=== PATIENT | male | born 1945 | race Caucasian/White ===

== ENCOUNTER 2017-07-28 15:42 | Inpatient (IN) ==
[2017-07-28 16:35] LABS: Basophils % 0.3 %; Eosinophils # 0.1 K/mcL (0.0-0.6); Eosinophils % 1.4 %; Hematocrit 37.4 % (37.5-50.1); Immature Granulocytes % 0.5 % (0-4); Lymphocytes # 1.3 K/mcL (0.6-4.6); Lymphocytes % 13.8 %; Mean Corpuscular HGB Conc 32.1 g/dL (31.6-35.5); Mean Corpuscular Hemoglobin 27.6 pg (28.0-33.3); Mean Corpuscular Volume 86.2 fL (83.0-100.0); Monocytes # 0.7 K/mcL (0.0-1.3); Monocytes % 7.3 %; Neutrophils # 7.2 K/mcL (1.6-8.9); Platelet Count 177 K/mcL (140-400); Red Blood Count 4.34 M/mcL (4.19-5.50); Red Cell Distribution Width 13.6 % (11.5-14.5); Segmented Neutrophils % 76.7 %
--- NOTE | 2017-07-28 16:38 | Emergency Department Note ---
Disposition Clinical Impression: Elevated troponin Acute exacerbation of CHF (congestive heart failure) Qualifiers: Congestive heart failure type: unspecified congestive heart failure type Qualified Code(s): I50.9 - Heart failure, unspecified Disposition: Admitted As Inpatient Condition: Good Time of Disposition: 19:15 SOB HPI - General Chief Complaint: ED Shortness of Breath/Dyspnea Stated Complaint: SOB/CHF Time Seen by Provider: 07/28/17 15:50 Source: family Limitations: language barrier Nursing Notes Reviewed: Yes Vital Signs Reviewed: Yes - History of Present Illness The patient is a 71 y/o M with a past medical history of congestive heart failure, hypertension, GA, and diabetes who is complaining of shortness of breath. The patient is only Wolof speaking. History is obtained from the patient but translated by his daughter at bedside. Outside Collector services were offered and the patient refused a medical staff physician and agrees to have his daughter translate for him. The patient states that the shortness of breath started last night while sleeping and it woke him up. He admits it improved when he propped himself up last night. The patient states that it feels similar to his past shortness of breath when he has a CHF exacerbation and usually feels better when "they take water off of me." Patient states that he could not use his CPAP last night because of his shortness of breath. Patient admits the SOB is worse with exertion and lying flat and improves at rest and sitting up. Patient recently returned from [place] two weeks ago and admits updated immunizations. Patient admit he had a GA in June 2017 while he was in [place]. Patient denies any fever, cough, nausea, vomiting, pain, abdominal pain, black or bloody stool, changes in his urination, numbness and tingling, or any focal neurological deficits. - Related Data Home Medications Medication Instructions Recorded Confirmed Acarbose [Precose] 50 mg PO TID 08/09/15 07/29/17 Metformin [Glucophage] 850 mg PO DAILY 08/09/15 07/29/17 Pentoxifylline [TRENtal] 400 mg PO BID 08/09/15 07/29/17 Hydralazine HCl 50 mg PO TID 01/18/16 07/29/17 Carvedilol [Coreg] 37.5 mg PO BID 07/29/17 07/29/17 Furosemide [Lasix] 40 mg PO BID 07/29/17 07/29/17 Insulin ASPART [Novolog Flexpen] 15 unit SQ BID 07/29/17 07/29/17 Metoprolol [Lopressor] 100 mg PO BID 07/29/17 07/29/17 Previous Rx's Medication Instructions Recorded Atorvastatin [Lipitor] 40 mg PO HS #30 tablet 08/14/15 Aspirin [Adult Low Dose Aspirin EC] 81 mg PO DAILY #30 tablet. 01/18/16 Allergies Allergy/AdvReac Type Severity Reaction Status Date / Time No Known Allergies Allergy Verified 07/28/17 15:44 All systems ED: reviewed and negative except as stated. Review of Systems: As Per HPI Respiratory: Reports: dyspnea. Denies: wheezes, sputum production Past Medical History - Past Medical History Medical history: Reports: CHF, coronary artery disease, CVA, diabetes, hyperlipidemia, hypertension, myocardial infarction, seizures, other Surgical history: Reports: vasectomy Psychiatric history: Reports: no psych history - Social History Smoking Status: Never smoker Smokeless Tobacco Status: No Alcohol use: Reports: none Drug use: Reports: none Physical Exam CONSTITUTIONAL: Alert and oriented X3, well-nourished, well appearing, in no apparent distress HEAD: Normocephalic; atraumatic. EYES: PERRL, no scleral icterus. NOSE: The nose is normal in appearance without rhinorrhea RESP: Inspiratory and expiratory wheezes heard anteriorly and posteriorly in the upper lobes bilaterally. No rhonchi or rales. Symmetrical chest rise. CARD: Regular rhythm, without murmurs, rub or gallop ABD: Non-distended; non-tender, soft,without rigidity, rebound or guarding SKIN: Normal for age and race; warm and dry; no apparent lesions EXTREMITIES: Pulses are 2 plus and equal times 4 extremities. Trace pitting edema in bilateral lower extremities. No calf muscle pain. - General Limitations: language barrier General appearance: alert Course Vital Signs Temperature 98.9 F 07/28/17 15:44 Pulse Rate 87 07/28/17 15:44 Respiratory Rate 20 07/28/17 15:44 Blood Pressure 134/79 07/28/17 15:44 O2 Sat by Pulse Oximetry 92 07/28/17 15:44 Temperature 97.5 F L 07/30/17 11:00 Pulse Rate 73 07/30/17 11:00 Respiratory Rate 16 07/30/17 11:05 Blood Pressure 123/76 07/30/17 11:00 O2 Sat by Pulse Oximetry 93 07/30/17 11:05 Oxygen Delivery Oxygen Delivery Room Air Shortness of Breath/Dyspnea - [facility] Narrative Medical decision making narrative: Patient is afebrile and appears in no acute distress. EKG shows no STEMI or acute ischemic changes. O2 sat was 93-94% on room air. Placed patient on 2L of oxygen and O2 sat increased to 98%. Shortness of breath workup is pending to further evaluate for possible CHF exacerbation, pneumonia, and pulmonary embolism. 16:52- CXR shows findings consistent with pulmonary edema. Reassessed the patient and admits SOB is improved on 3L of oxygen. 18:00- Elevated BNP and Troponin. Will give patient Lasix for CHF exacerbation and 324 mg Aspirin. Plan to admit patient. Waiting on admitting hospitalist to call. 18:28 - Dr. Felix discussed with Sha Washington about the patient. He agrees to accept the patient. Patient and his family agrees with the plan. - Lab Data Lab results reviewed: Yes I reviewed the patient's lab results. Result diagrams: 07/30/17 04:53 07/30/17 04:53 Lab Results 07/28/17 07/28/17 07/28/17 Range/Units 16:19 16:19 16:19 WBC 9.4 (4.3-11.1) K/mcL RBC 4.34 (4.19-5.50) M/mcL Hgb 12.0 L (12.9-16.9) g/dL Hct 37.4 L (37.5-50.1) % MCV 86.2 (83.0-100.0) fL MCH 27.6 L (28.0-33.3) pg MCHC 32.1 (31.6-35.5) g/dL RDW 13.6 (11.5-14.5) % Plt Count 177 (140-400) K/mcL MPV 11.0 (9.4-12.4) fL Immature Gran % 0.5 (0-4) % Seg Neutrophils % 76.7 % Lymphocytes % 13.8 % Monocytes % 7.3 % Eosinophils % 1.4 % Basophils % 0.3 % Neutrophils # 7.2 (1.6-8.9) K/mcL Lymphocytes # 1.3 (0.6-4.6) K/mcL Monocytes # 0.7 (0.0-1.3) K/mcL Eosinophils # 0.1 (0.0-0.6) K/mcL Basophils # 0.0 (0.0-0.2) K/mcL D-Dimer (0-500) ng/mLFEU Sodium 135 L (136-145) mEq/L Potassium 4.9 H (3.5-4.5) mEq/L Chloride 105 (98-109) mEq/L Carbon Dioxide 21 (19-29) mEq/L BUN 29 H (8-26) mg/dL Creatinine 1.55 H (0.72-1.25) mg/dL Est GFR ( Amer) 54 L (> 60) Est GFR (Non-Af Amer) 45 L (> 60) BUN/Creatinine Ratio 19 (6-26) Glucose 280 H (70-99) mg/dL POC Glucose (58-89) Calculated Osmolality 296 (280-300) Lactic Acid (0.5-2.2) mmol/L Calcium 9.1 (8.6-10.8) mg/dL Troponin I 0.08 H* (0-0.03) ng/mL B-Natriuretic Peptide (0-100) pg/mL 07/28/17 07/28/17 07/28/17 Range/Units 16:19 16:19 17:24 WBC (4.3-11.1) K/mcL RBC (4.19-5.50) M/mcL Hgb (12.9-16.9) g/dL Hct (37.5-50.1) % MCV (83.0-100.0) fL MCH (28.0-33.3) pg MCHC (31.6-35.5) g/dL RDW (11.5-14.5) % Plt Count (140-400) K/mcL MPV (9.4-12.4) fL Immature Gran % (0-4) % Seg Neutrophils % % Lymphocytes % % Monocytes % % Eosinophils % % Basophils % % Neutrophils # (1.6-8.9) K/mcL Lymphocytes # (0.6-4.6) K/mcL Monocytes # (0.0-1.3) K/mcL Eosinophils # (0.0-0.6) K/mcL Basophils # (0.0-0.2) K/mcL D-Dimer 465 (0-500) ng/mLFEU Sodium (136-145) mEq/L Potassium (3.5-4.5) mEq/L Chloride (98-109) mEq/L Carbon Dioxide (19-29) mEq/L BUN (8-26) mg/dL Creatinine (0.72-1.25) mg/dL Est GFR ( Amer) (> 60) Est GFR (Non-Af Amer) (> 60) BUN/Creatinine Ratio (6-26) Glucose (70-99) mg/dL POC Glucose (58-89) Calculated Osmolality (280-300) Lactic Acid 0.9 (0.5-2.2) mmol/L Calcium (8.6-10.8) mg/dL Troponin I (0-0.03) ng/mL B-Natriuretic Peptide 1506 H (0-100) pg/mL 07/28/17 Range/Units 21:47 WBC (4.3-11.1) K/mcL RBC (4.19-5.50) M/mcL Hgb (12.9-16.9) g/dL Hct (37.5-50.1) % MCV (83.0-100.0) fL MCH (28.0-33.3) pg MCHC (31.6-35.5) g/dL RDW (11.5-14.5) % Plt Count (140-400) K/mcL MPV (9.4-12.4) fL Immature Gran % (0-4) % Seg Neutrophils % % Lymphocytes % % Monocytes % % Eosinophils % % Basophils % % Neutrophils # (1.6-8.9) K/mcL Lymphocytes # (0.6-4.6) K/mcL Monocytes # (0.0-1.3) K/mcL Eosinophils # (0.0-0.6) K/mcL Basophils # (0.0-0.2) K/mcL D-Dimer (0-500) ng/mLFEU Sodium (136-145) mEq/L Potassium (3.5-4.5) mEq/L Chloride (98-109) mEq/L Carbon Dioxide (19-29) mEq/L BUN (8-26) mg/dL Creatinine (0.72-1.25) mg/dL Est GFR ( Amer) (> 60) Est GFR (Non-Af Amer) (> 60) BUN/Creatinine Ratio (6-26) Glucose (70-99) mg/dL POC Glucose 164 H (58-89) Calculated Osmolality (280-300) Lactic Acid (0.5-2.2) mmol/L Calcium (8.6-10.8) mg/dL Troponin I (0-0.03) ng/mL B-Natriuretic Peptide (0-100) pg/mL - Radiology Data Radiology results reviewed: Yes I reviewed the patient's radiology results. Chest X-Ray 07/28/17 16:18 IMPRESSION: Cardiopericardial enlargement and perihilar opacities compatible with pulmonary edema. Apparent inferior positioning of the AICD lead compared to previous exam, possibly related to cardiopericardial enlargement. D/ / Iraj Christianson MD / Iraj Christianson MD Interpreting Provider: Iraj Christianson MD - EKG Data EKG attestation: Yes I reviewed and interpreted this EKG. EKG results narrative: EKG Shows sinus rhythm with a ventricular rate of , [place] interval at 174, QRS duration at 104, QT at 383, QTC at 424. No Acute ischemic changes noted on the EKG. No old EKG to compare it to. Attestation Statement - Attestation Attestation: I examined this patient and my medical decision-making was reviewed with the Resident Physician. I agree with the documented findings, disposition and treatment plan as described except to the extent set forth below. 71 yo male presents with increasing SOB. Pt states he is unable to lay flat secondary to SOB. +hx of CHF and possible GA within the past few months while in [place]. troponin is elevated however it is likely at his baseline. D-dimer negative. +elevated BNP and CXR consistent with CHF. Pt given aspirin and lasix and admitted for further care and evaluation.
[2017-07-28 16:52] LABS: Calcium 9.1 mg/dL (8.6-10.8)
[2017-07-28 16:54] LABS: Potassium 4.9 mEq/L (3.5-4.5)
[2017-07-28] MEDS ORDERED: Furosemide 40 MG/4 ML VIAL IVP ONE (17:41)
[2017-07-28] MEDS ORDERED: Aspirin 81 MG TAB.CHEW PO STA (18:04)
--- NOTE | 2017-07-28 19:33 | Internal Med History&Physical ---
<Angelo Gonzalez - Last Filed: 07/28/17 21:13> Date of Encounter: 07/28/17 Time of Encounter: 20:45 Assessment and Plan (1) CHF exacerbation Current visit: No Status: Acute Patient presents with shortness of breath likely due to CHF exacerbation. -Patient has an elevated BNP of 1506. -Chest x-ray demonstrates evidence of pulmonary edema. -Aggressive diuresis: 80 mg Lasix BID. -Metolazone 10 mg 1 dose one hour before the administration of Lasix. -Strict intake and output. -Low-sodium diet. -Closely monitor potassium and magnesium. Qualifiers: Qualified Code(s): I50.9 - Heart failure, unspecified (2) Dyspnea Current visit: No Status: Acute Palpitations shortness of breath likely due to CHF exacerbation. -Patient is currently on 2 L oxygen. -Aggressive diuresis. -Continue to monitor patient's creatinine and electrolytes closely. Qualifiers: Qualified Code(s): R06.02 - Shortness of breath; R06.00 - Dyspnea, unspecified; R06.01 - Orthopnea (3) Diabetes mellitus Current visit: No Status: Acute Patient has a known history of diabetes mellitus. -Insulin and Accu-Cheks. Qualifiers: Diabetes mellitus type: type 2 Diabetes mellitus complication status: with unspecified complications Diabetes mellitus roasterman insulin use: unspecified senior living insulin use status Qualified Code(s): E11.8 - Type 2 diabetes mellitus with unspecified complications (4) Elevated troponin I level Current visit: No Status: Acute Patient presented with a troponin level of 0.08. -Elevated troponin level is possibly secondary to demand ischemia. -EKG demonstrated no acute changes suggestive of myocardial infarction. -Aspirin 324 mg. -Repeat troponin levels. Internal Medicine - H&P: HPI Chief complaint: Shortness of breath Admitted From: Home History of present illness: Mr. Dela Cruz is a 71 year old male with a past medical history of CHF, hypertension, ID, diabetes who presented to the emergency department with a chief complaint of shortness of breath. Patient does not speak fluent Bulgarian; only speaks Marshallese. Patient is accompanied by his daughter, who provides most of the patient's history. He states that his shortness of breath started last night while he was sleeping and woke him up. He states that his shortness of breath improved when he props himself up. He notes that this episode is similar to several CHF exacerbations he has had the past. He has had approximately 10 such exacerbations since the year 2012. He notes that his condition normally improves when he "they take water off me." Patient's shortness of breath is worse with exertion and lying flat, and it improves with rest and sitting up. Patient states that he had recently returned from a trip to [place] 2 weeks ago. During this trip, he had a ID. When he went to the hospital, he was told that he had evidence of ischemia on EKG. No treatment was given during that time. Patient's chest pain improved shortly after. Past Med Surg Social Fam HX - Past Medical History Medical history: CHF, coronary artery disease, CVA, diabetes, hyperlipidemia, hypertension, myocardial infarction, seizures, other Psychiatric history: no psych history - Past Surgical History Surgical History: vasectomy - Social History Smoking Status: Never smoker Smokeless Tobacco Status: No Alcohol use: none Drug use: none - Family History Father Living Status: Hx Family Cardiac Disorders: Yes Hx Family Respiratory Disorders: No Hx Family Cancer: No Hx Family GI Disorders: No Hx Family Endocrine Disorder: No Hx Family Neuromuscular Disorders: No Hx Family Neurologic Disorders: No Hx Family HEENT Disorders: No Hx Family Autoimmune Disorders: No Daughter Adopted: No Family Member Ethnicity: Living Status: Still Living Hx Family Cardiac Disorders: Yes (brother) Hx Family Respiratory Disorders: No Hx Family Cancer: Yes (grandmother) Hx Family GI Disorders: No Hx Family Endocrine Disorder: Yes Hx Family Neuromuscular Disorders: No Hx Family Neurologic Disorders: No Hx Family HEENT Disorders: No Mother Family Member Ethnicity: Living Status: Hx Family Cardiac Disorders: No Hx Family Respiratory Disorders: No Hx Family Cancer: Yes (bone) Hx Family GI Disorders: No Hx Family Endocrine Disorder: Yes (DM) Hx Family Neuromuscular Disorders: No Hx Family Neurologic Disorders: No Hx Family HEENT Disorders: No Hx Family Autoimmune Disorders: No Internal Medicine - H&P: Meds Acarbose [Precose] 50 mg PO TID 08/09/15 [History] Metformin [Glucophage] 850 mg PO TID 08/09/15 [History] Pentoxifylline [TRENtal] 400 mg PO DAILY 08/09/15 [History] Atorvastatin [Lipitor] 40 mg PO HS #30 tablet 08/14/15 [Rx] Furosemide [Lasix] 40 mg PO BIDDIURETIC #30 tablet 08/14/15 [Rx] Aspirin [Adult Low Dose Aspirin EC] 81 mg PO DAILY #30 tablet. 01/18/16 [Rx] Hydralazine HCl 50 mg PO TID 01/18/16 [History] Enalapril Maleate [Vasotec] 10 mg PO BID 06/20/16 [History] Novolin N 15 unit SQ BID 06/20/16 [History] 3 Allergy/AdvReac Type Severity Reaction Status Date / Time No Known Allergies Allergy Verified 07/28/17 15:44 All Systems PM: A 10-system review of systems was performed and is negative for pertinent findings except as documented above in the HPI. - Constitutional Constitutional: no chills, no fever(s), no night sweats - EENT Nose, mouth and throat: no nasal discharge, no neck pain - Cardiovascular Cardiovascular ROS IM: dyspnea, no chest pain, no diaphoresis, no lightheadedness, no palpitations, no syncope - Respiratory Respiratory: no cough, no dyspnea, no wheezing, no excessive phlegm production - Gastrointestinal Gastrointestinal: no abdominal pain, no diarrhea, no hematemesis, no hematochezia, no melena, no nausea, no vomiting - Musculoskeletal Musculoskeletal ROS IM: no numbness, no tingling - Integumentary Integumentary IM: no rash, no unusual bruising - Neurological Neurological ROS: no confusion, no convulsions - Hematologic/Lymphatic Hematologic/Lymphatic: no easy bruising - Constitutional Vitals: Temp Pulse Resp BP Pulse Ox 98.9 F 85 18 155/107 96 07/28/17 15:44 07/28/17 18:06 07/28/17 18:53 07/28/17 18:53 07/28/17 18:06 General appearance: Present: A&O X 3, no acute distress, answers questions appropriately - Head Head exam: Present: atraumatic, normocephalic - Neck Neck exam general surgery: Present: supple, trachea midline. Absent: lymphadenopathy - Respiratory Respiratory exam: Present: CTAB. Absent: accessory muscle use, rales, rhonchi, wheezes - Cardiovascular Cardiovascular exam: Present: RRR, +S1, +S2. Absent: diastolic murmur, gallop, rubs, systolic murmur - GI/Abdominal GI/Abdominal exam: Present: normal bowel sounds, soft, no peritoneal signs. Absent: distended, tenderness - Extremities Exam Extremities exam: Present: pedal edema, warm, radial pulses palpable and symmetrical. Absent: calf tenderness, cyanotic - Skin Skin exam: Present: dry, intact Internal Med - H&P Results - Labs CBC & Chem 7: 07/28/17 16:19 07/28/17 16:19 <Alley Fajardo - Last Filed: 07/29/17 05:35> Date of Encounter: 07/28/17 Internal Medicine - H&P: HPI History of present illness: Mr. Dela Cruz is a 71 year old male All Systems PM: A 10-system review of systems was performed and is negative for pertinent findings except as documented above in the HPI. - Constitutional Vitals: Temp Pulse Resp BP Pulse Ox 99.4 F 95 16 169/67 96 07/29/17 04:11 07/29/17 04:11 07/29/17 04:11 07/29/17 04:11 07/29/17 04:11 Internal Med - H&P Results - Labs CBC & Chem 7: 07/28/17 16:19 07/28/17 16:19 - Attending Attestation I have independently and personally seen the patient and examined the patient and discuss care plan with the resident and I gave her the findings. Patient came in with shortness of breath. His BNP is elevated in the range of 1506. He has mild renal insufficiency with creatinine of 1.5. On examination his JVD is noted to be elevated and his is still dyspneic. Normally he uses 3 L of oxygen at home but now he is on 6 L of oxygen. We plan to diurese him aggressively with Lasix 80 mg IV twice a day with Zaroxolyn. Zaroxolyn need to be stopped until 3 days once he is diuresed enough. Patient known EF is 30-35% and he has an AICD. I will also add nebulizer treatment. He has underlying COPD exacerbation.
[2017-07-28] MEDS: metOLazone 5 MG TABLET PO SCH (21:12)
[2017-07-28] MEDS: Furosemide 40 MG/4 ML VIAL IVP SCH (22:56)
[2017-07-29] MEDS ORDERED: Dextrose Gel 15 GM PO PRN ×2 (05:26)
[2017-07-29] MEDS ORDERED: *HR* Dextrose 50 % in Water (Syg) 50 ML SYRINGE IVP PRN (05:26)
[2017-07-29] MEDS ORDERED: D5% in Water 1,000 ML IVC PRN (05:26)
[2017-07-29] MEDS ORDERED: Ondansetron 4 MG/2 ML VIAL IVP PRN (05:27)
[2017-07-29] MEDS ORDERED: Naloxone 0.4 MG/ML INJ IVP PRN (05:27)
[2017-07-29] MEDS ORDERED: Acetaminophen 325 MG TABLET PO PRN (05:27)
[2017-07-29] MEDS ORDERED: Albuterol 2.5 MG/3 ML NEBULIZER IH PRN (05:35)
[2017-07-29] MEDS: *HR* Heparin 5,000 UNIT/ML VIAL SQ SCH ×2 (06:22→17:49)
[2017-07-29 06:39] LABS: Albumin 3.6 g/dL (3.5-5.0); Bilirubin,Total 1.2 mg/dL (0.2-1.2); Calcium 9.2 mg/dL (8.6-10.8); Globulin 3.5 g/dL (2.4-3.5); Magnesium 1.7 mg/dL (1.6-2.6); Potassium 3.4 mEq/L (3.5-4.5); Total Protein 7.1 g/dL (6.0-8.3)
[2017-07-29] MEDS: Ipratropium/Albuterol Neb 3 ML IH SCH ×4 (07:49→22:01)
[2017-07-29] MEDS: hydrALAZINE 25 MG TABLET PO SCH ×3 (08:53→22:11)
[2017-07-29] MEDS: Aspirin Enteric Coated 81 MG Tablet PO SCH (08:53)
[2017-07-29] MEDS: Insulin LISPRO 300 UNITS/3 ML VIAL SQ SCH ×4 (08:53→22:12)
[2017-07-29] MEDS: metOLazone 5 MG TABLET PO SCH (08:53)
[2017-07-29] MEDS: Furosemide 40 MG/4 ML VIAL IVP SCH ×2 (08:54→22:11)
[2017-07-29] MEDS ORDERED: INSULIN ISOPHANE SQ SCH (09:00)
--- NOTE | 2017-07-29 12:24 | Electrocardiograph Report ---
[place] [id number] Test Date: 2017-07-28 Pat Name: Antonio Dela Cruz Department: 103 Room: 2A Gender: M Division Field Inspector: : [id number] Requested By: Guillermo Timmons Order Number: [id number] Reading MD: Ac Mckeon MD Measurements Intervals [place] Rate: 84 P: 51 AL: 174 QRS: -22 QRSD: 104 T: 140 QT: 383 QTc: 424 Interpretive Statements SINUS RHYTHM WITH OCCASIONAL SUPRAVENTRICULAR PREMATURE COMPLEXES BORDERLINE LEFT AXIS DEVIATION LEFT VENTRICULAR HYPERTROPHY AND ST-T CHANGE Electronically Signed On 07-29-2017 12:22:38 EDT by Ac Mckeon MD
--- NOTE | 2017-07-29 22:12 | Internal Med Progress Note ---
Date of Encounter: 07/29/17 Time of Encounter: 12:30 - Assessment and plan (1) Heart failure, systolic, with acute decompensation Current Visit: Yes Status: Acute Assessment and plan: Due to non-compliance. His daughter states that this is mainly due to a [place] diet that he enjoys where most foods are high in sodium. Does not seem to be retaining much water at this point. Continue Lasix 80 mg IV BID with metolazone. Strict I/Os and daily weights. Anticipate to lower Lasix dose tomorrow if he does well overnight. An echocardiogram one year ago 06/2016 showed EF 30-35% with some diastolic dysfunction of LV. Repeat echocardiogram today. If worsens we may need to consult Cardiology. (2) EDGAR (acute kidney injury) Current Visit: No Status: Acute Assessment and plan: Probably hepatorenal syndrome as his function has slightly improved with treatment. (3) CAD (coronary artery disease) Current Visit: No Status: Chronic Qualifiers: Coronary Disease-Associated Artery/Lesion type: [place] artery [place] vs. transplanted heart: [place] heart Associated angina: angina presence unspecified Qualified Code(s): I25.10 - Atherosclerotic heart disease of [place] coronary artery without angina pectoris (4) Cardiac enzymes elevated Current Visit: No Status: Acute (5) DM (diabetes mellitus), type 2 Current Visit: No Status: Chronic Qualifiers: Diabetes mellitus complication status: with hyperglycemia Diabetes mellitus retirement insulin use: with retirement use Qualified Code(s): E11.65 - Type 2 diabetes mellitus with hyperglycemia; Z79.4 - intermediate card tender (current) use of insulin (6) ICD (implantable cardioverter-defibrillator) in place Current Visit: Yes Status: Acute - Subjective Interval history: Leather Scrubber, , and daughter are present in room. 71 year old male who his daughter describes as non-compliant presents for CHF exacerbation. He currently feels good and has no complaints. SOB only if laying down. Denies chest pain, n/v, palpitations, numbness/tingling. - Constitutional Vitals: Temp Pulse Resp BP Pulse Ox 97.9 F 76 16 158/79 96 07/29/17 19:52 07/29/17 19:52 07/29/17 19:52 07/29/17 19:52 07/29/17 19:52 General appearance: Present: A&O X 3, no acute distress, answers questions appropriately Exam: CVS: RRR, no m/r/g, No JVD, no carotid bruits Lungs: Good air exchange throughout. Lungs are clear to auscultation. no wheezing/rales/rhonchi Abd: Soft, NT/ND, normoactive bowel sounds Ext: trace bipedal pitting edema. Internal Medicine: Result - Labs CBC & Chem 7: 07/28/17 16:19 07/29/17 05:30 Labs: BMP 07/29/17 05:30 Sodium 140 Potassium 3.4 L D Chloride 101 Carbon Dioxide 27 BUN 27 H Creatinine 1.47 H Glucose 171 H Calcium 9.2 Cardiac Enzymes 07/29/17 07/29/17 07/29/17 Range/Units 05:30 11:23 18:24 Troponin I 0.08 H* 0.08 H* 0.07 H* (0-0.03) ng/mL Liver Function 07/29/17 Range/Units 05:30 Total Bilirubin 1.2 (0.2-1.2) mg/dL AST 15 (5-34) Units/L ALT 10 (0-55) Units/L Alkaline Phosphatase 98 (38-126) Units/L Albumin 3.6 (3.5-5.0) g/dL - ABG Interpretation ABG results: PT/INR, D-dimer D-Dimer 465 ng/mLFEU (0-500) 07/28/17 16:19 Consult Discharge Plan - Plan Referrals: Bernadette Thomas CNP [Primary Care Provider] -
[2017-07-30] MEDS: Ipratropium/Albuterol Neb 3 ML IH SCH ×4 (04:39→23:17)
[2017-07-30 05:48] LABS: Basophils % 0.2 %; Eosinophils # 0.2 K/mcL (0.0-0.6); Eosinophils % 1.9 %; Hematocrit 40.4 % (37.5-50.1); Hemoglobin 13.1 g/dL (12.9-16.9); Immature Granulocytes % 0.4 % (0-4); Lymphocytes # 1.9 K/mcL (0.6-4.6); Lymphocytes % 23.3 %; Mean Corpuscular HGB Conc 32.4 g/dL (31.6-35.5); Mean Corpuscular Hemoglobin 27.2 pg (28.0-33.3); Mean Corpuscular Volume 83.8 fL (83.0-100.0); Monocytes # 0.8 K/mcL (0.0-1.3); Monocytes % 10.1 %; Neutrophils # 5.1 K/mcL (1.6-8.9); Platelet Count 189 K/mcL (140-400); Red Blood Count 4.82 M/mcL (4.19-5.50); Red Cell Distribution Width 13.4 % (11.5-14.5); Segmented Neutrophils % 64.1 %
[2017-07-30 06:00] LABS: Magnesium 1.8 mg/dL (1.6-2.6); Phosphorous 4.9 mg/dL (2.3-4.7)
[2017-07-30 06:01] LABS: Calcium 9.7 mg/dL (8.6-10.8); Potassium 3.2 mEq/L (3.5-4.5)
[2017-07-30] MEDS: hydrALAZINE 25 MG TABLET PO SCH ×3 (07:04→20:55)
[2017-07-30] MEDS: Aspirin Enteric Coated 81 MG Tablet PO SCH (07:05)
[2017-07-30] MEDS: Furosemide 40 MG/4 ML VIAL IVP SCH (07:05)
[2017-07-30] MEDS: *HR* Heparin 5,000 UNIT/ML VIAL SQ SCH ×2 (07:05→17:18)
[2017-07-30] MEDS: metOLazone 5 MG TABLET PO SCH (07:05)
[2017-07-30] MEDS: Insulin LISPRO 300 UNITS/3 ML VIAL SQ SCH ×4 (07:06→20:55)
[2017-07-30] MEDS: Insulin DETEMIR 100 UNIT/ML X5UNITS SQ SCH (15:14)
[2017-07-30] MEDS ORDERED: Furosemide 40 MG/4 ML VIAL IVP SCH (17:00)
--- NOTE | 2017-07-31 02:23 | Internal Med Progress Note ---
Date of Encounter: 07/30/17 Time of Encounter: 11:00 - Assessment and plan (1) Heart failure, systolic, with acute decompensation Current Visit: Yes Status: Acute Assessment and plan: He appears to be euvolemic currently so 80 mg IV Lasix was held. Renal function slightly worsened. Monitor overnight. Possible discharge in AM but will need to restart Lasix, just not at his previous home dose of 80 mg PO BID with metolazone. Probably 40 mg PO BID on discharge if renal function improves. (2) EDGAR (acute kidney injury) Current Visit: No Status: Acute Assessment and plan: Hold Lasix and monitor. (3) CAD (coronary artery disease) Current Visit: No Status: Chronic Qualifiers: Coronary Disease-Associated Artery/Lesion type: [place] artery [place] vs. transplanted heart: [place] heart Associated angina: angina presence unspecified Qualified Code(s): I25.10 - Atherosclerotic heart disease of [place] coronary artery without angina pectoris (4) Cardiac enzymes elevated Current Visit: No Status: Acute (5) DM (diabetes mellitus), type 2 Current Visit: No Status: Chronic Qualifiers: Diabetes mellitus complication status: with hyperglycemia Diabetes mellitus jail insulin use: with logistics specialist use Qualified Code(s): E11.65 - Type 2 diabetes mellitus with hyperglycemia; Z79.4 - document advisor (current) use of insulin (6) ICD (implantable cardioverter-defibrillator) in place Current Visit: Yes Status: Acute (7) Left ventricular ejection fraction of 30% to 35% Current Visit: Yes Status: Acute - Subjective Interval history: Wrapper Dipper in room. Patient has no complaints. He denies dyspnea. He states his swelling is resolved. - Constitutional Vitals: Temp Pulse Resp BP Pulse Ox 98.0 F 95 18 118/77 100 07/30/17 23:28 07/30/17 23:28 07/30/17 23:28 07/30/17 23:28 07/30/17 23:28 General appearance: Present: A&O X 3, no acute distress, answers questions appropriately - Eye Eye exam: Present: PERRL, conjuntiva pink, sclera anicteric Pupils: Present: PERRL - Respiratory Respiratory exam: Present: CTAB. Absent: accessory muscle use, rales, rhonchi, wheezes - Cardiovascular Cardiovascular exam: Present: RRR, +S1, +S2. Absent: diastolic murmur, gallop, rubs, systolic murmur - Extremities Exam Extremities exam: Present: warm, radial pulses palpable and symmetrical. Absent : calf tenderness, cyanotic, pedal edema Internal Medicine: Result - Labs CBC & Chem 7: 07/30/17 04:53 07/30/17 04:53 Labs: Short CBC 07/30/17 Range/Units 04:53 WBC 8.0 (4.3-11.1) K/mcL Hgb 13.1 (12.9-16.9) g/dL Hct 40.4 (37.5-50.1) % Plt Count 189 (140-400) K/mcL Neutrophils # 5.1 (1.6-8.9) K/mcL BMP 07/30/17 04:53 Sodium 141 Potassium 3.2 L Chloride 94 L Carbon Dioxide 33 H BUN 38 H D Creatinine 1.93 H Glucose 211 H Calcium 9.7 - ABG Interpretation ABG results: PT/INR, D-dimer D-Dimer 465 ng/mLFEU (0-500) 07/28/17 16:19 - Impressions Impressions Echocardiogram 07/30/17 13:50 Impressions: LVEF 35%. Moderately dilated left ventricle. Indeterminate diastolic function. Normal right ventricular structure and function. Mild mitral regurgitation. No pulmonary hypertension. There is a trivial pericardial effusion present without tamponade. Left Ventricular Wall Motion: Rest Echo Findings The apex, apical inferior, mid inferior, basal inferior, apical anterior, mid anterior, basal anterior, apical septal, mid inferior septal, basal inferior septal, apical lateral, mid anterior lateral, basal anterior lateral, mid anterior septal, mid inferior lateral, basal anterior septal and basal inferior lateral bailey were hypokinetic. Findings: Study Quality * Technically adequate exam. ECG Findings * HR 100's, may be sinus tachycardia. Left Ventricle * LVEF 35%. * Moderately dilated left ventricle. * Indeterminate diastolic function. Aorta * Normally sized aortic root. Aortic Valve * No aortic regurgitation. * Aortic valve not well visualized. * No aortic stenosis. Mitral Valve * Normal mitral valve structure. * No mitral stenosis. * Mild mitral regurgitation. Tricuspid Valve * Tricuspid valve not well visualized. * No tricuspid regurgitation. * Estimated RA pressure is 3 mmHg. * Estimated RVSP is 21 mmHg. * No pulmonary hypertension. Pulmonic Valve * Pulmonic valve is not well visualized. * No pulmonic stenosis. * No pulmonic regurgitation. Pulmonary Artery * Pulmonary artery not well visualized. Right Ventricle * Normal right ventricular structure and function. Left Atrium * Normal left atrial size. Right Atrium * Normal right atrial size. Interatrial Septum * No evidence of PFO by color Doppler. Pericardium * There is a trivial pericardial effusion present. * There is no echocardiographic evidence of tamponade. IVC * Normal IVC dimensions and inspiratory collapse. Consult Discharge Plan - Plan Referrals: Bernadette Thomas B[employer]ING [employer] WORKER [Primary Care Provider] -
[2017-07-31] MEDS: Ipratropium/Albuterol Neb 3 ML IH SCH ×4 (04:28→22:41)
[2017-07-31 05:29] LABS: Basophils % 0.4 %; Eosinophils # 0.2 K/mcL (0.0-0.6); Eosinophils % 2.7 %; Hematocrit 38.4 % (37.5-50.1); Hemoglobin 12.5 g/dL (12.9-16.9); Immature Granulocytes % 0.4 % (0-4); Lymphocytes # 1.9 K/mcL (0.6-4.6); Mean Corpuscular HGB Conc 32.6 g/dL (31.6-35.5); Mean Corpuscular Hemoglobin 27.3 pg (28.0-33.3); Mean Corpuscular Volume 83.8 fL (83.0-100.0); Mean Platelet Volume 11.1 fL (9.4-12.4); Monocytes # 0.9 K/mcL (0.0-1.3); Monocytes % 13.3 %; Neutrophils # 3.9 K/mcL (1.6-8.9); Platelet Count 205 K/mcL (140-400); Red Blood Count 4.58 M/mcL (4.19-5.50); Red Cell Distribution Width 13.5 % (11.5-14.5); Segmented Neutrophils % 56.2 %
[2017-07-31 05:45] LABS: Calcium 8.9 mg/dL (8.6-10.8); Potassium 2.9 mEq/L (3.5-4.5)
[2017-07-31] MEDS: *HR* Heparin 5,000 UNIT/ML VIAL SQ SCH ×2 (06:18→17:06)
[2017-07-31] MEDS: Insulin LISPRO 300 UNITS/3 ML VIAL SQ SCH ×4 (08:57→20:48)
[2017-07-31] MEDS: Aspirin Enteric Coated 81 MG Tablet PO SCH (08:57)
[2017-07-31] MEDS: Insulin DETEMIR 100 UNIT/ML X5UNITS SQ SCH (08:57)
[2017-07-31] MEDS: hydrALAZINE 25 MG TABLET PO SCH ×3 (08:57→20:47)
[2017-07-31] MEDS ORDERED: Potassium Chloride 20 MEQ, Lidocaine 1% 2 ML in D5% in Water 250 ML IVPB ONE (09:34)
--- NOTE | 2017-07-31 12:52 | Nephrology Consult Note ---
Date of Encounter: 07/31/17 Time of Encounter: 12:00 Assessment and Plan (1) EDGAR (acute kidney injury) Current Visit: No Status: Acute Elevated SCr in the setting of CHF exacerbation with diuresis Agree with holding diuretics for now Will give albumin now (2) CKD (chronic kidney disease) stage 3, GFR 30-59 ml/min Current Visit: Yes Status: Acute Likely with CKD stage 3 in the stting of DM and HTN Will initiate CKD workup History of Present Illness - Reason for Consult Consult date: 07/31/17 Acute Kidney Injury, Chronic Kidney Disease Requesting physician: Radha Aragon - History of Present Illness 71 y o male with PMH of HTN, DM, CAD s/p ND and CHF s/p AICD admitted with SOB and was diagnosed with CHF exacerbation undergoing diuresis with lasix 80mg iv bid. Renal consulted for worsening SCr at 2.21, GFR 30 from 1.55, GFR 45 on presentation. At baseline SCr noted at 1.34, GFR 53 as of Past Med Surg Social Fam HX - Past Medical History Medical history: CHF, coronary artery disease, CVA, diabetes, hyperlipidemia, hypertension, myocardial infarction, seizures, other Psychiatric history: no psych history - Past Surgical History Surgical History: vasectomy - Social History Smoking Status: Never smoker Smokeless Tobacco Status: No Alcohol use: none Drug use: none - Family History Father Living Status: Age at : 32 Cause of : ND Hx Family Cardiac Disorders: Yes Hx Family Respiratory Disorders: No Hx Family Cancer: No Hx Family GI Disorders: No Hx Family Endocrine Disorder: No Hx Family Neuromuscular Disorders: No Hx Family Neurologic Disorders: No Hx Family HEENT Disorders: No Hx Family Autoimmune Disorders: No Daughter Adopted: No Family Member Ethnicity: Living Status: Still Living Hx Family Cardiac Disorders: Yes (brother) Hx Family Respiratory Disorders: No Hx Family Cancer: Yes (grandmother) Hx Family GI Disorders: No Hx Family Endocrine Disorder: Yes Hx Family Neuromuscular Disorders: No Hx Family Neurologic Disorders: No Hx Family HEENT Disorders: No Mother Family Member Ethnicity: Living Status: Age at : 77 Cause of : bone cancer Hx Family Cardiac Disorders: No Hx Family Respiratory Disorders: No Hx Family Cancer: Yes (bone) Hx Family GI Disorders: No Hx Family Endocrine Disorder: Yes (DM) Hx Family Neuromuscular Disorders: No Hx Family Neurologic Disorders: No Hx Family HEENT Disorders: No Hx Family Autoimmune Disorders: No Medications and Allergies Acarbose [Precose] 50 mg PO TID 08/09/15 [History] Metformin [Glucophage] 850 mg PO DAILY 08/09/15 [History] Pentoxifylline [TRENtal] 400 mg PO BID 08/09/15 [History] Atorvastatin [Lipitor] 40 mg PO HS #30 tablet 08/14/15 [Rx] Aspirin [Adult Low Dose Aspirin EC] 81 mg PO DAILY #30 tablet. 01/18/16 [Rx] Hydralazine HCl 50 mg PO TID 01/18/16 [History] Carvedilol [Coreg] 37.5 mg PO BID 07/29/17 [History] Furosemide [Lasix] 40 mg PO BID 07/29/17 [History] Insulin ASPART [Novolog Flexpen] 15 unit SQ BID 07/29/17 [History] Metoprolol [Lopressor] 100 mg PO BID 07/29/17 [History] 3 Allergy/AdvReac Type Severity Reaction Status Date / Time No Known Allergies Allergy Verified 07/28/17 15:44 Exam - Vital Signs Vital signs: Initial Vital Signs Temp Pulse Resp BP Pulse Ox 98.9 F 87 20 134/79 92 07/28/17 15:44 07/28/17 15:44 07/28/17 15:44 07/28/17 15:44 07/28/17 15:44 Vital Signs - Last 8 Hours Temp Pulse Resp BP Pulse Ox 07/31/17 10:49 97.7 F 102 14 119/82 93 07/31/17 10:38 18 93 07/31/17 09:00 95 07/31/17 06:54 98.3 F 103 14 146/86 95 Intake and Output 07/30/17 07/31/17 07/31/17 23:59 07:59 15:59 Intake Total 0 / 0 Balance 0 / 0 Intake: Oral 0 / 0 Other: Meal Breakfast Percent of Meal Consumed 100% # Voids 1 Weight 93.61 kg Blood Glucose* 326 186 320 Patient Weight 07/31/17 23:59 Weight 93.61 kg Results - Lab Results 07/31/17 04:42 07/31/17 04:42 Most recent lab results Calcium 8.9 mg/dL (8.6-10.8) 07/31/17 04:42 Phosphorus 4.9 mg/dL (2.3-4.7) H 07/30/17 04:53 Magnesium 1.8 mg/dL (1.6-2.6) 07/30/17 04:53 Consult Discharge Plan - Plan Referrals: Bernadette Tohmas CNP [Primary Care Provider] -
[2017-07-31] MEDS: Albumin 25% 25gram/100mL 25 GM/100 ML IV.SOLN IVPB SCH (16:01)
--- NOTE | 2017-07-31 17:02 | Internal Med Progress Note ---
Date of Encounter: 07/31/17 Time of Encounter: 10:10 - Assessment and plan (1) CHF (congestive heart failure) Current Visit: Yes Status: Acute Assessment and plan: Treated with intravenous Lasix. Patient currently appears to be euvolemic. Holding Lasix for now due to worsening renal function. Continue aspirin, statin and beta douglas. Qualifiers: Congestive heart failure type: systolic Congestive heart failure chronicity : acute on chronic Qualified Code(s): I50.23 - Acute on chronic systolic ( congestive) heart failure (2) EDGAR (acute kidney injury) Current Visit: Yes Status: Acute Assessment and plan: Renal function worse today with creatinine of 2.21. Likely due to volume contraction. Nephrology consulted. We will follow recommendations. Continue to hold Lasix. (3) NSVT (nonsustained ventricular tachycardia) Current Visit: Yes Status: Acute Assessment and plan: Patient had an episode of nonsustained ventricular tachycardia. Multiple risk factors including cardiomyopathy, hypokalemia. We will start patient on beta douglas. Monitor blood pressure closely. Patient was previously on beta douglas but this was stopped when patient was in [place]. If patient has further episodes, we will consult cardiology. (4) CAD (coronary artery disease) Current Visit: No Status: Chronic Assessment and plan: No chest pain. Continue aspirin and statin . Placed patient on beta douglas. Qualifiers: Coronary Disease-Associated Artery/Lesion type: [place] artery [place] vs. transplanted heart: [place] heart Associated angina: angina presence unspecified Qualified Code(s): I25.10 - Atherosclerotic heart disease of [place] coronary artery without angina pectoris (5) Cardiac enzymes elevated Current Visit: No Status: Acute Assessment and plan: likely due to underlying cardiomyopathy. (6) DM (diabetes mellitus), type 2 Current Visit: Yes Status: Chronic Assessment and plan: Uncontrolled. Will further increase insulin regimen. Continue to monitor blood sugars. Qualifiers: Diabetes mellitus complication status: with hyperglycemia Diabetes mellitus halfway insulin use: with terminal system operator use Qualified Code(s): E11.65 - Type 2 diabetes mellitus with hyperglycemia; Z79.4 - ad terminal makeup operator (current) use of insulin (7) HTN (hypertension) Current Visit: Yes Status: Chronic Assessment and plan: Well controlled. Qualifiers: Hypertension type: essential hypertension Qualified Code(s): I10 - Essential (primary) hypertension (8) ICD (implantable cardioverter-defibrillator) in place Current Visit: Yes Status: Chronic (9) Hypokalemia Current Visit: Yes Status: Acute Assessment and plan: Due to aggressive diuresis. Will replete. - Subjective Interval history: Spoke to patient with the help of historic interpreter. Patient is feeling good today. Denies any chest pain. No shortness of breath. No fever or chills overnight. No nausea or vomiting. - Constitutional Vitals: Temp Pulse Resp BP Pulse Ox 97.6 F 87 18 138/89 93 07/31/17 16:16 07/31/17 16:16 07/31/17 16:22 07/31/17 16:16 07/31/17 16:22 General appearance: Present: cooperative, A&O X 3, no acute distress, answers questions appropriately - Eye Eye exam: Present: EOMI, PERRL, conjuntiva pink, sclera anicteric - Neck Neck exam general surgery: Present: supple, trachea midline. Absent: lymphadenopathy - Respiratory Respiratory exam: Present: CTAB. Absent: accessory muscle use, rales, rhonchi, wheezes - Cardiovascular Cardiovascular exam: Present: RRR, +S1, +S2. Absent: diastolic murmur, gallop, rubs, systolic murmur - GI/Abdominal GI/Abdominal exam: Present: normal bowel sounds, soft, no peritoneal signs. Absent: distended, tenderness - Extremities Exam Extremities exam: Present: warm, radial pulses palpable and symmetrical. Absent : calf tenderness, cyanotic, pedal edema - Neurological Exam Neurological exam: Present: alert, oriented X3, no focal deficits. Absent: facial droop, speech deficit - Skin Skin exam: Present: dry, intact Internal Medicine: Result - Labs CBC & Chem 7: 07/31/17 04:42 07/31/17 04:42 Labs: Short CBC 07/31/17 Range/Units 04:42 WBC 6.9 (4.3-11.1) K/mcL Hgb 12.5 L (12.9-16.9) g/dL Hct 38.4 (37.5-50.1) % Plt Count 205 (140-400) K/mcL Neutrophils # 3.9 (1.6-8.9) K/mcL BMP 07/31/17 04:42 Sodium 141 Potassium 2.9 L Chloride 96 L Carbon Dioxide 32 H BUN 51 H D Creatinine 2.21 H Glucose 151 H Calcium 8.9 - ABG Interpretation ABG results: PT/INR, D-dimer D-Dimer 465 ng/mLFEU (0-500) 07/28/17 16:19 Consult Discharge Plan - Plan Referrals: Bernadette Thomas CNP [Primary Care Provider] -
[2017-08-01] MEDS: Albumin 25% 25gram/100mL 25 GM/100 ML IV.SOLN IVPB SCH ×3 (00:29→13:17)
[2017-08-01 04:16] LABS: Calcium 9.3 mg/dL (8.6-10.8)
[2017-08-01] MEDS: Ipratropium/Albuterol Neb 3 ML IH SCH ×2 (04:37→11:27)
[2017-08-01 04:38] LABS: Potassium 4.3 mEq/L (3.5-4.5)
[2017-08-01] MEDS: *HR* Heparin 5,000 UNIT/ML VIAL SQ SCH (05:55)
[2017-08-01] MEDS: Aspirin Enteric Coated 81 MG Tablet PO SCH (08:17)
[2017-08-01] MEDS: Insulin LISPRO 300 UNITS/3 ML VIAL SQ SCH ×2 (08:17→11:22)
[2017-08-01] MEDS: hydrALAZINE 25 MG TABLET PO SCH ×2 (08:17→14:48)
[2017-08-01] MEDS ORDERED: Insulin DETEMIR 100 UNIT/ML X5UNITS SQ SCH (09:00)
[2017-08-01 10:47] VITALS: BP 133/84
--- NOTE | 2017-08-01 12:59 | Discharge Summary ---
Date of Encounter: 08/01/17 Time of Encounter: 10:20 - Discharge Diagnosis (1) CHF (congestive heart failure) Priority: Primary Status: Acute Qualifiers: Congestive heart failure type: systolic Congestive heart failure chronicity : acute on chronic Qualified Code(s): I50.23 - Acute on chronic systolic ( congestive) heart failure (2) EDGAR (acute kidney injury) Priority: Secondary Status: Acute (3) NSVT (nonsustained ventricular tachycardia) Priority: Secondary Status: Acute (4) CAD (coronary artery disease) Priority: Secondary Status: Chronic Qualifiers: Coronary Disease-Associated Artery/Lesion type: [place] artery [place] vs. transplanted heart: [place] heart Associated angina: angina presence unspecified Qualified Code(s): I25.10 - Atherosclerotic heart disease of [place] coronary artery without angina pectoris (5) Cardiac enzymes elevated Priority: Secondary Status: Acute (6) DM (diabetes mellitus), type 2 Priority: Secondary Status: Chronic Qualifiers: Diabetes mellitus complication status: with hyperglycemia Diabetes mellitus correction insulin use: with correction use Qualified Code(s): E11.65 - Type 2 diabetes mellitus with hyperglycemia; Z79.4 - intermediate (current) use of insulin (7) HTN (hypertension) Priority: Secondary Status: Chronic Qualifiers: Hypertension type: essential hypertension Qualified Code(s): I10 - Essential (primary) hypertension (8) ICD (implantable cardioverter-defibrillator) in place Priority: Secondary Status: Chronic (9) Hypokalemia Priority: Secondary Status: Resolved - Discharge Medications Prescriptions: Enalapril Maleate [Vasotec] 10 mg PO BID #60 tablet Metoprolol [Lopressor] 25 mg PO BID #60 tablet Home Medications: Acarbose [Precose] 50 mg PO TID 08/09/15 [History] Metformin [Glucophage] 850 mg PO DAILY 08/09/15 [History] Pentoxifylline [TRENtal] 400 mg PO BID 08/09/15 [History] Atorvastatin [Lipitor] 40 mg PO HS #30 tablet 08/14/15 [Rx] Aspirin [Adult Low Dose Aspirin EC] 81 mg PO DAILY #30 tablet. 01/18/16 [Rx] Hydralazine HCl 50 mg PO TID 01/18/16 [History] Furosemide [Lasix] 40 mg PO BID 07/29/17 [History] Insulin ASPART [Novolog Flexpen] 15 unit SQ BID 07/29/17 [History] Enalapril Maleate [Vasotec] 10 mg PO BID #60 tablet 08/01/17 [Rx] Metoprolol [Lopressor] 25 mg PO BID #60 tablet 08/01/17 [Rx] Allergies/Adverse Reactions: 3 Allergy/AdvReac Type Severity Reaction Status Date / Time No Known Allergies Allergy Verified 07/28/17 15:44 Procedures/tests Complete & Pending: Procedures Performed prior 72 hours Category Date Time Status US retroperitoneal comp [US] Routine Exams 07/31/17 19:00 Completed EV echocardiogram Routine Y 07/30/17 13:50 Completed Date of admission: 07/29/17 05:27 Primary care physician: BEN Rodriguez Consults: 07/31/17 13:14 Consult to Nephrology [CONS] Routine Consulting Provider: Kidney Latesha/SLOAN/BRITTA/ANGEL LUIS Reason for Consult: EDGAR on CKD Call Completed: Yes Discharging clinician: Radha Aragon Anticipated date of discharge: 08/01/17 - Patient Status Disposition: Home, Self-Care Condition: Good Functional capacity at discharge: independent ambulation Overall status at discharge: patient is progressing back to baseline - Discharge Instructions Instructions: Heart Failure (DC) Follow Up With: Bernadette Thomas CNP [Primary Care Provider] - (in 1-2 weeks) Jayleen Cuellar MD [Partnered Physician] - (in [address] Leon office will call the patient for an appt.) Additional Instructions: With Cardiology in 1 week Hold lasix , Enalapril, metformin for 3 days and resume after - Diet and Activity Activity: increase activity as tolerated Diet: diabetic diet, low fat, low cholesterol, low salt diet Hospital course: Mr. Dela Cruz is a 71 year old male patient with history of CHF, hypertension, prior NH, diabetes who presented to the ER with complaints of shortness of breath. He was diagnosed with acute CHF and was admitted to the hospital. He had been having episodes of orthopnea and PND. Patient had recently been to [place] where he had an episode of NH. He did not receive any specific treatment for that. He was treated with intravenous Lasix and metolazone significant improvement in his symptoms. However, his renal function worsened and his creatinine went up to 2.21. Nephrology was consulted. Patient does have a history of diabetes and may have underlying chronic kidney disease. This is being worked up. The Lasix and metolazone were held and renal function monitored. Today his creatinine is improving and is at 2.12. At this time, patient is stable to be discharged home. He will be referred to nephrology for follow-up. He is advised to continue holding his Lasix for 3 days and may resume it after that. He needs to remain on fluid restriction. During his stay here, patient developed an episode of nonsustained ventricular tachycardia which spontaneously resolved. Patient does have AICD in place. He was on metoprolol previously but it had a pretty been discontinued when he was in [place]. He has now been placed back on metoprolol at 25 mg twice daily and since then he has not had any further episodes of NSVT. Patient did have hypokalemia with a potassium of 2.9 when this episode occurred. It has since been corrected. - Time Spent with Patient Total time spent providing and/or coordinating discharge services: Greater than 30 minutes (35 min) - Constitutional Vitals: Temp Pulse Resp BP Pulse Ox 97.8 F 82 18 133/84 94 08/01/17 10:42 08/01/17 10:42 08/01/17 10:42 08/01/17 10:42 08/01/17 10:42 General appearance: Present: cooperative, A&O X 3, no acute distress, answers questions appropriately - Respiratory Respiratory exam: Present: CTAB. Absent: accessory muscle use, rales, rhonchi, wheezes - Cardiovascular Cardiovascular exam: Present: RRR, +S1, +S2. Absent: diastolic murmur, gallop, rubs, systolic murmur - GI/Abdominal GI/Abdominal exam: Present: normal bowel sounds, soft, no peritoneal signs. Absent: distended, tenderness
--- NOTE | 2017-08-01 13:04 | Nephrology Progress Note ---
Date of Encounter: 08/01/17 Time of Encounter: 11:00 - Assessment and Plan (1) EDGAR (acute kidney injury) Current Visit: Yes Status: Acute (2) CKD (chronic kidney disease) stage 3, GFR 30-59 ml/min Current Visit: Yes Status: Acute Objective - Vital Signs Vital signs: Vital Signs Temp Pulse Resp BP Pulse Ox 08/01/17 10:42 97.8 F 82 18 133/84 94 08/01/17 07:57 99.1 F 92 16 152/83 95 08/01/17 03:52 97.8 F 61 17 161/97 93 07/31/17 23:37 98.5 F 87 17 122/79 95 07/31/17 22:42 16 96 07/31/17 20:03 98.6 F 93 17 130/83 98 07/31/17 16:22 18 93 07/31/17 16:16 97.6 F 87 17 138/89 95 Intake and Output 07/31/17 08/01/17 08/01/17 23:59 07:59 15:59 Intake Total 100 / 100 200 / 200 Balance 100 / 100 200 / 200 Intake: IV Fluids 100 / 100 200 / 200 Flexbumin 25 gm In 100 ml @ 60 100 / 100 200 / 200 mls/hr IVPB Q8HR FRANCK Rx#: [id number] Other: Weight 93.3 kg Blood Glucose* 310 255 375 Patient Weight 08/01/17 23:59 Weight 93.3 kg - Lab 07/31/17 04:42 08/01/17 03:45 Most recent lab results Calcium 9.3 mg/dL (8.6-10.8) 08/01/17 03:45 Phosphorus 4.9 mg/dL (2.3-4.7) H 07/30/17 04:53 Magnesium 1.8 mg/dL (1.6-2.6) 07/30/17 04:53 Consult Discharge Plan - Plan Referrals: Bernadette Thomas CNP [Primary Care Provider] -
[2017-08-02 07:55] LABS: Complement Component 3 121 mg/dL (88-201); Complement Component 4 36 mg/dL (10-40)
[2017-08-02 14:45] LABS: ANA IgG by ELISA DETECTED (None Detected)
[2017-08-03 03:56] LABS: Alpha 2 Globulin (PEP) 0.87 g/dL (0.48-1.05); Beta Globulin (PEP) 1.05 g/dL (0.48-1.10)
[2017-08-03 07:19] LABS: IFE Reflexed NOT DONE
[2017-08-06 07:15] LABS: ANA IgG IFA Titer <1:40 (<1:40)
== END 2017-08-01 15:08 | disposition home or self-care (01) | DRG 291 ==
LOC: EMEROO 15:42 → 2ANU 15:42 → SUATTDRO 07-29 05:27
PROVIDERS: ADMIT Nurse Practitioner Family; ATTEND Internal Medicine

== ENCOUNTER 2017-10-06 00:03 | Observation (INO) ==
--- NOTE | 2017-10-06 00:25 | Emergency Department Note ---
Disposition Clinical Impression: Elevated troponin Acute exacerbation of CHF (congestive heart failure) Qualifiers: Congestive heart failure type: unspecified congestive heart failure type Qualified Code(s): I50.9 - Heart failure, unspecified Disposition: Admitted As Inpatient Condition: Fair Referrals: Bernadette Thomas CNP [Primary Care Provider] - Forms: ED Satisfaction Letter Time of Disposition: 01:11 SOB HPI - General Chief Complaint: ED Shortness of Breath/Dyspnea Stated Complaint: halima hx of chf Time Seen by Provider: 10/06/17 00:09 Source: family Mode of arrival: ambulatory Limitations: language barrier Nursing Notes Reviewed: Yes Vital Signs Reviewed: Yes - History of Present Illness Nontoxic-appearing 72-year-old male presents for evaluation of progressively worsening shortness of breath over the past 2 days. The patient's daughter states a history of congestive heart failure. The patient does take furosemide however the dosage is not known. He does claim to take this as prescribed on a daily basis. He complains of worsening dyspnea with exertion, orthopnea, as well as mildly increased lateral lower extremity edema. He denies any chest pain, pain with inspiration, or productive cough. He denies any abdominal pain , nausea, vomiting, or diaphoresis. He denies any hemoptysis. Pt Subjective Complaint: shortness of breath Onset (ago): day(s) (2) Severity: moderate Consistency/Duration: gradually worsening Improves with: nothing Worsens with: lying flat, exertion Known history of: congestive heart failure Associated symptoms: Reports: orthopnea. Denies: chest pain, pain with inspiration, fever, cough, wheezing, sputum production, lower extremity pain, hemoptysis, diaphoresis, nausea/vomiting, abdominal pain Treatment prior to arrival: diuretics Cough present: No - Related Data Home Medications Medication Instructions Recorded Confirmed Acarbose [Precose] 50 mg PO TID 08/09/15 07/29/17 Metformin [Glucophage] 850 mg PO DAILY 08/09/15 07/29/17 Pentoxifylline [TRENtal] 400 mg PO BID 08/09/15 07/29/17 Hydralazine HCl 50 mg PO TID 01/18/16 07/29/17 Furosemide [Lasix] 40 mg PO BID 07/29/17 07/29/17 Insulin ASPART [Novolog Flexpen] 15 unit SQ BID 07/29/17 07/29/17 Previous Rx's Medication Instructions Recorded Atorvastatin [Lipitor] 40 mg PO HS #30 tablet 08/14/15 Aspirin [Adult Low Dose Aspirin EC] 81 mg PO DAILY #30 tablet. 01/18/16 Enalapril Maleate [Vasotec] 10 mg PO BID #60 tablet 08/01/17 Metoprolol [Lopressor] 25 mg PO BID #60 tablet 08/01/17 Allergies Allergy/AdvReac Type Severity Reaction Status Date / Time No Known Allergies Allergy Verified 10/06/17 00:06 All systems ED: reviewed and negative except as stated. Constitutional: Denies: fever, chills, weakness, weight change Eyes: Denies: eye pain, eye discharge, vision change ENT ED: Denies: ear pain, throat pain, dental pain, hearing loss, epistaxis, congestion, dysphagia Cardiovascular: Reports: as per HPI, dyspnea on exertion, orthopnea, edema ( Bilateral lower extremities). Denies: chest pain, palpitations, syncope Respiratory: Reports: as per HPI, dyspnea. Denies: cough, wheezes, hemoptysis, stridor Gastrointestinal: Denies: abdominal pain, nausea, vomiting, diarrhea, constipation, hematemesis, melena, hematochezia Genitourinary: Denies: urgency, dysuria, frequency, hematuria Musculoskeletal: Denies: back pain, neck pain, arthralgia, myalgia Integumentary: Denies: rash, abrasion, lesions Neurological: Denies: headache, weakness, numbness, paresthesias, confusion, abnormal gait, vertigo Psychiatric: Denies: anxiety, depression, suicidal thoughts, homicidal thoughts , auditory hallucinations, visual hallucinations Endocrine: Denies: fatigue Hematological/Lymphatic: Denies: easy bleeding, easy bruising Allergic/Immunologic: Denies: facial swelling, urticaria Past Medical History - Past Medical History Attestation: Yes The following information was validated with the patient. Source: obtained from family Medical history: Reports: CHF, coronary artery disease, CVA, diabetes, hyperlipidemia, hypertension, myocardial infarction, seizures, other Surgical history: Reports: vasectomy Psychiatric history: Reports: no psych history - Social History Smoking Status: Never smoker Smokeless Tobacco Status: No Alcohol use: Reports: none Drug use: Reports: none Physical Exam - General Limitations: language barrier General appearance: alert, in no apparent distress - Head Head exam: atraumatic, normocephalic, normal inspection - Eye Eye exam: Present: normal appearance, PERRL, EOMI. Absent: nystagmus - ENT ENT exam: mucous membranes moist - Neck Neck exam: Present: normal inspection, full ROM, trachea midline. Absent: lymphadenopathy - Chest Chest inspection: Present: normal inspection, symmetric chest wall rise - Respiratory Respiratory exam: Present: other (lung sounds coars throughout the periphery). Absent: respiratory distress, wheezes, stridor, accessory muscle use, prolonged expiratory phase - Cardiovascular Cardiovascular exam: Present: regular rate, normal rhythm, normal heart sounds - Abdominal Exam Abdominal exam: Present: soft, Non-Tender, normal bowel sounds - Extremities Exam Extremities exam: Present: normal inspection, full ROM, pedal edema (1+ pretibial edema noted bilaterally). Absent: tenderness - Neurological Exam Neurological exam: Present: alert, oriented X3 - Psychiatric Psychiatric exam: Present: normal affect, normal mood - Skin Skin exam: Present: warm, dry, intact, normal color Course Course Narrative: 0110: I have spoken with Dr. Doyle, hospitalist decommissioning well site manager. Dr. Doyle access the patient to his service for further evaluation of his exacerbation of congestive heart failure as well as elevated cardiac enzyme level. I have discussed this patient's case with Dr. Nair as well. Dr. Du has had a [id number] evaluation with this patient, agrees with the outlined plan. The patient's cardiac enzyme level was elevated beyond his baseline level, however the patient still adamantly denies any chest pain. Again, there have been no appreciable changes in his EKG from his previous visit here on July 28 of this past year. Vital Signs Temperature 99.5 F 10/06/17 00:06 Pulse Rate 97 10/06/17 00:06 Respiratory Rate 22 10/06/17 00:06 Blood Pressure 193/124 10/06/17 00:06 O2 Sat by Pulse Oximetry 94 10/06/17 00:06 Temperature 99.5 F 10/06/17 00:06 Pulse Rate 98 10/06/17 01:10 Respiratory Rate 20 10/06/17 01:10 Blood Pressure 184/118 10/06/17 01:10 O2 Sat by Pulse Oximetry 98 10/06/17 01:10 Oxygen Delivery Oxygen Delivery Nasal Cannula Shortness of Breath/Dyspnea - Medical Records Medical records reviewed: Yes I reviewed the patient's medical records. - Lab Data Lab results reviewed: Yes I reviewed the patient's lab results. Result diagrams: 10/06/17 00:18 10/06/17 00:18 Lab Results 10/06/17 10/06/17 10/06/17 Range/Units 00:18 00:18 00:18 WBC 10.7 (4.3-11.1) K/mcL RBC 4.76 (4.19-5.50) M/mcL Hgb 13.1 (12.9-16.9) g/dL Hct 41.2 (37.5-50.1) % MCV 86.6 (83.0-100.0) fL MCH 27.5 L (28.0-33.3) pg MCHC 31.8 (31.6-35.5) g/dL RDW 13.7 (11.5-14.5) % Plt Count 220 (140-400) K/mcL MPV 10.2 (9.4-12.4) fL Immature Gran % 0.4 (0-4) % Seg Neutrophils % 67.8 % Lymphocytes % 22.2 % Monocytes % 6.7 % Eosinophils % 2.7 % Basophils % 0.2 % Neutrophils # 7.2 (1.6-8.9) K/mcL Lymphocytes # 2.4 (0.6-4.6) K/mcL Monocytes # 0.7 (0.0-1.3) K/mcL Eosinophils # 0.3 (0.0-0.6) K/mcL Basophils # 0.0 (0.0-0.2) K/mcL PT 11.4 (9.4-12.1) Seconds INR 1.1 APTT 33.0 (26.0-36.0) Seconds Sodium 140 (136-145) mEq/L Potassium 3.8 (3.5-5.1) mEq/L Chloride 104 (98-107) mEq/L Carbon Dioxide 30 H (23-29) mEq/L BUN 23 (8-23) mg/dL Creatinine 1.23 (0.70-1.30) mg/dL Est GFR ( Amer) > 60 (> 60) Est GFR (Non-Af Amer) 58 L (> 60) BUN/Creatinine Ratio 19 (6-26) Glucose 116 H (70-105) mg/dL Calculated Osmolality 295 (280-300) Lactic Acid (0.5-2.2) mmol/L Calcium 9.6 (8.6-10.3) mg/dL Troponin I (< 0.04) ng/mL B-Natriuretic Peptide (Less than 100) pg/mL Urine Color (Yellow) Urine Clarity (Clear) Urine pH (5.0-8.0) pH Units Ur Specific [place] (1.010-1.025) Urine Protein (Neg-Trace) mg/dL Urine Glucose (UA) (Normal) mg/dL Urine Ketones (Negative) mg/dL Urine Blood (Negative) Urine Nitrite (Negative) Urine Bilirubin (Negative) Urine Urobilinogen (Normal) mg/dL Ur Leukocyte Esterase (Negative) Urine Microscopic RBC (0-3) per hpf Urine Microscopic WBC (0-3) per hpf Ur Squamous Epith Cells (None-Few) per lpf Urine Bacteria (None-Few) per hpf Hyaline Casts (None-Few) per lpf Ur Culture Indicated? (NO) 10/06/17 10/06/17 10/06/17 Range/Units 00:18 00:18 00:18 WBC (4.3-11.1) K/mcL RBC (4.19-5.50) M/mcL Hgb (12.9-16.9) g/dL Hct (37.5-50.1) % MCV (83.0-100.0) fL MCH (28.0-33.3) pg MCHC (31.6-35.5) g/dL RDW (11.5-14.5) % Plt Count (140-400) K/mcL MPV (9.4-12.4) fL Immature Gran % (0-4) % Seg Neutrophils % % Lymphocytes % % Monocytes % % Eosinophils % % Basophils % % Neutrophils # (1.6-8.9) K/mcL Lymphocytes # (0.6-4.6) K/mcL Monocytes # (0.0-1.3) K/mcL Eosinophils # (0.0-0.6) K/mcL Basophils # (0.0-0.2) K/mcL PT (9.4-12.1) Seconds INR APTT (26.0-36.0) Seconds Sodium (136-145) mEq/L Potassium (3.5-5.1) mEq/L Chloride (98-107) mEq/L Carbon Dioxide (23-29) mEq/L BUN (8-23) mg/dL Creatinine (0.70-1.30) mg/dL Est GFR ( Amer) (> 60) Est GFR (Non-Af Amer) (> 60) BUN/Creatinine Ratio (6-26) Glucose (70-105) mg/dL Calculated Osmolality (280-300) Lactic Acid 0.9 (0.5-2.2) mmol/L Calcium (8.6-10.3) mg/dL Troponin I 0.17 H* (< 0.04) ng/mL B-Natriuretic Peptide 1031 H (Less than 100) pg/mL Urine Color (Yellow) Urine Clarity (Clear) Urine pH (5.0-8.0) pH Units Ur Specific [place] (1.010-1.025) Urine Protein (Neg-Trace) mg/dL Urine Glucose (UA) (Normal) mg/dL Urine Ketones (Negative) mg/dL Urine Blood (Negative) Urine Nitrite (Negative) Urine Bilirubin (Negative) Urine Urobilinogen (Normal) mg/dL Ur Leukocyte Esterase (Negative) Urine Microscopic RBC (0-3) per hpf Urine Microscopic WBC (0-3) per hpf Ur Squamous Epith Cells (None-Few) per lpf Urine Bacteria (None-Few) per hpf Hyaline Casts (None-Few) per lpf Ur Culture Indicated? (NO) 10/06/17 Range/Units 00:36 WBC (4.3-11.1) K/mcL RBC (4.19-5.50) M/mcL Hgb (12.9-16.9) g/dL Hct (37.5-50.1) % MCV (83.0-100.0) fL MCH (28.0-33.3) pg MCHC (31.6-35.5) g/dL RDW (11.5-14.5) % Plt Count (140-400) K/mcL MPV (9.4-12.4) fL Immature Gran % (0-4) % Seg Neutrophils % % Lymphocytes % % Monocytes % % Eosinophils % % Basophils % % Neutrophils # (1.6-8.9) K/mcL Lymphocytes # (0.6-4.6) K/mcL Monocytes # (0.0-1.3) K/mcL Eosinophils # (0.0-0.6) K/mcL Basophils # (0.0-0.2) K/mcL PT (9.4-12.1) Seconds INR APTT (26.0-36.0) Seconds Sodium (136-145) mEq/L Potassium (3.5-5.1) mEq/L Chloride (98-107) mEq/L Carbon Dioxide (23-29) mEq/L BUN (8-23) mg/dL Creatinine (0.70-1.30) mg/dL Est GFR ( Amer) (> 60) Est GFR (Non-Af Amer) (> 60) BUN/Creatinine Ratio (6-26) Glucose (70-105) mg/dL Calculated Osmolality (280-300) Lactic Acid (0.5-2.2) mmol/L Calcium (8.6-10.3) mg/dL Troponin I (< 0.04) ng/mL B-Natriuretic Peptide (Less than 100) pg/mL Urine Color Yellow (Yellow) Urine Clarity Clear (Clear) Urine pH 7.5 (5.0-8.0) pH Units Ur Specific [place] 1.020 (1.010-1.025) Urine Protein 100 H (Neg-Trace) mg/dL Urine Glucose (UA) Normal (Normal) mg/dL Urine Ketones Negative (Negative) mg/dL Urine Blood Trace-intact H (Negative) Urine Nitrite Negative (Negative) Urine Bilirubin Negative (Negative) Urine Urobilinogen Normal (Normal) mg/dL Ur Leukocyte Esterase Negative (Negative) Urine Microscopic RBC 0-3 (0-3) per hpf Urine Microscopic WBC 0-3 (0-3) per hpf Ur Squamous Epith Cells None Seen (None-Few) per lpf Urine Bacteria None Seen (None-Few) per hpf Hyaline Casts None Seen (None-Few) per lpf Ur Culture Indicated? NO (NO) - Radiology Data Radiology results reviewed: Yes I reviewed the patient's radiology results. - EKG Data EKG attestation: Yes I reviewed and interpreted this EKG. EKG results narrative: EKG reviewed by Dr. Du as well. EKG shows a sinus tachycardia with borderline left axis deviation and left ventricular hypertrophy with ST T changes at a rate of 102 bpm. GA interval 174, QRS duration 109, QT/QTC intervals 347/406. No ectopy noted. No STEMI. No significant changes when compared with an EKG dated from 07/28/17. Attestation Statement - Attestation Attestation: I, Esteban Du MD, personally evaluated this patient and discussed their management with the midlevel provicer, PAC/METAL CANS SUPERVISOR. I reviewed the midlevel provider 's note and agree with the documented findings, medical decision making, and plan of care. 72-year-old male presents to the emergency department for increasing shortness of breath over the past several days. Patient has a history of CHF. No cough or fever. No chest pain. On examination patient is a well-developed obese elderly female in no acute distress. He is alert and oriented 3. There is no cyanosis or diaphoresis. Sounds are decreased bilaterally with a few bibasilar rales. No wheezes noted. Heart regular rate and rhythm. Abdomen soft and nontender with normal bowel sounds. Trace pedal edema bilaterally. EKG shows a normal sinus rhythm with no significant change from prior EKG. Labs reviewed. Troponin 0.17. BNP 1031. Chest x-ray consistent with CHF. The hospitalist, Dr. Doyle, was consulted and accepted admission of the patient.
[2017-10-06 00:30] LABS: Basophils % 0.2 %; Eosinophils # 0.3 K/mcL (0.0-0.6); Eosinophils % 2.7 %; Hematocrit 41.2 % (37.5-50.1); Hemoglobin 13.1 g/dL (12.9-16.9); Immature Granulocytes % 0.4 % (0-4); Lymphocytes # 2.4 K/mcL (0.6-4.6); Lymphocytes % 22.2 %; Mean Corpuscular HGB Conc 31.8 g/dL (31.6-35.5); Mean Corpuscular Hemoglobin 27.5 pg (28.0-33.3); Mean Corpuscular Volume 86.6 fL (83.0-100.0); Mean Platelet Volume 10.2 fL (9.4-12.4); Monocytes # 0.7 K/mcL (0.0-1.3); Monocytes % 6.7 %; Neutrophils # 7.2 K/mcL (1.6-8.9); Platelet Count 220 K/mcL (140-400); Red Blood Count 4.76 M/mcL (4.19-5.50); Red Cell Distribution Width 13.7 % (11.5-14.5); Segmented Neutrophils % 67.8 %
[2017-10-06 00:35] LABS: INR 1.1; Prothrombin Time 11.4 Seconds (9.4-12.1)
[2017-10-06 00:46] LABS: BUN/Creatinine Ratio 19 (6-26); Blood Urea Nitrogen 23 mg/dL (8-23); Calcium 9.6 mg/dL (8.6-10.3); Carbon Dioxide 30 mEq/L (23-29); Chloride 104 mEq/L (98-107); Glucose 116 mg/dL (70-105); Osmolality,Calculated 295 (280-300); Potassium 3.8 mEq/L (3.5-5.1); Sodium 140 mEq/L (136-145); eGFR For African Americans > 60 (> 60); eGFR For Non-African Americans 58 (> 60)
[2017-10-06 00:52] LABS: Bilirubin,Urine Negative (Negative); Blood,Urine Trace-intact (Negative); Clarity,Urine Clear (Clear); Color,Urine Yellow (Yellow); Glucose,Urine (UA) Normal (Normal); Ketones,Urine Negative (Negative); Leukocyte Esterase,Urine Negative (Negative); Nitrite,Urine Negative (Negative); PH,Urine 7.5 pH Units (5.0-8.0); Protein,Urine 100 mg/dL (Neg-Trace); Urobilinogen,Urine Normal (Normal)
[2017-10-06] MEDS ORDERED: Aspirin 81 MG TAB.CHEW PO ONE (00:53)
[2017-10-06] MEDS ORDERED: Furosemide 40 MG/4 ML VIAL IVP ONE (00:57)
[2017-10-06] MEDS ORDERED: Nitroglycerin 1 INCH/GM PACKET TP ONE (00:57)
[2017-10-06 01:03] LABS: Bacteria,Urine None Seen per hpf (None-Few); Hyaline Casts,Urine None Seen per lpf (None-Few); RBC,Urine 0-3 per hpf (0-3); Squamous Epithelial Cell,Urine None Seen per lpf (None-Few); WBC,Urine 0-3 per hpf (0-3)
[2017-10-06] MEDS ORDERED: *HR* Labetalol 20 MG/4 ML SYRINGE IVP ONE (05:05)
--- NOTE | 2017-10-06 06:12 | Internal Med History&Physical ---
Date of Encounter: 10/06/17 Time of Encounter: 04:31 Assessment and Plan (1) Acute exacerbation of CHF (congestive heart failure) Current visit: Yes Status: Acute 40 mg IV lasix BID, daily weights, strict I/O. Qualifiers: Congestive heart failure type: systolic Qualified Code(s): I50.23 - Acute on chronic systolic (congestive) heart failure (2) Elevated troponin Current visit: Yes Status: Acute Slightly above baseline with history of CKD and current respiratory distress. Likely demand ischemia but will rule out ACS. Denies chest pain, n/v, diaphoresis. Will trend cardiac enzymes, if concern for ACS will anticoagulate patient. (3) Systolic heart failure Current visit: Yes Status: Acute Qualifiers: Heart failure chronicity: acute on chronic Qualified Code(s): I50.23 - Acute on chronic systolic (congestive) heart failure (4) HTN (hypertension) Current visit: No Status: Chronic resume home medication Qualifiers: Hypertension type: essential hypertension Qualified Code(s): I10 - Essential (primary) hypertension (5) CAD (coronary artery disease) Current visit: No Status: Chronic Qualifiers: Coronary Disease-Associated Artery/Lesion type: [place] artery [place] vs. transplanted heart: [place] heart Associated angina: angina presence unspecified Qualified Code(s): I25.10 - Atherosclerotic heart disease of [place] coronary artery without angina pectoris (6) DM (diabetes mellitus), type 2 Current visit: No Status: Chronic Resume home medications but hold metformin. Low dose sliding scale and ADA/ cardiac diet. Qualifiers: Diabetes mellitus complication status: with unspecified complications Diabetes mellitus chcf insulin use: with chcf use Qualified Code(s) : E11.8 - Type 2 diabetes mellitus with unspecified complications; Z79.4 - assisted (current) use of insulin; Z79.4 - rn long term care (current) use of insulin; Z79.4 - assisted (current) use of insulin; Z79.4 - assisted (current) use of insulin (7) KIAH on CPAP Current visit: No Status: Chronic (8) ICD (implantable cardioverter-defibrillator) in place Current visit: No Status: Chronic (9) CKD (chronic kidney disease) stage 3, GFR 30-59 ml/min Current visit: No Status: Acute (10) DVT prophylaxis Current visit: No Status: Acute Internal Medicine - H&P: HPI History of present illness: Mr. Dela Cruz is a 72 year old male with history of HFrEF, coronary artery disease , CVA, diabetes, hyperlipidemia, hypertension, myocardial infarction presented for 2 day history of dyspnea. He was reported by ED that he does take medication as prescribed. He does have a known history of non-adherence to low sodium diet. He reported orthopnea, NOVAK, and worsening lower extremity edema. Chest x-ray in ED showed pulmonary edema and small right pleural effusion. EKG done had no significant chagnes compared to one done on previous admission. BNP was elevated 1037. Troponin in ED was elevated at 0.17 but he denies chest pain, diaphoresis, numbness/tingling, n/v. Past Med Surg Social Fam HX - Past Medical History Medical history: CHF, coronary artery disease, CVA, diabetes, hyperlipidemia, hypertension, myocardial infarction, seizures, other Psychiatric history: no psych history - Past Surgical History Surgical History: vasectomy - Social History Smoking Status: Never smoker Smokeless Tobacco Status: No Alcohol use: none Drug use: none - Family History Father Living Status: Hx Family Cardiac Disorders: Yes Hx Family Respiratory Disorders: No Hx Family Cancer: No Hx Family GI Disorders: No Hx Family Endocrine Disorder: No Hx Family Neuromuscular Disorders: No Hx Family Neurologic Disorders: No Hx Family HEENT Disorders: No Hx Family Autoimmune Disorders: No Daughter Adopted: No Family Member Ethnicity: Living Status: Still Living Hx Family Cardiac Disorders: Yes (brother) Hx Family Respiratory Disorders: No Hx Family Cancer: Yes (grandmother) Hx Family GI Disorders: No Hx Family Endocrine Disorder: Yes Hx Family Neuromuscular Disorders: No Hx Family Neurologic Disorders: No Hx Family HEENT Disorders: No Mother Family Member Ethnicity: Living Status: Hx Family Cardiac Disorders: No Hx Family Respiratory Disorders: No Hx Family Cancer: Yes (bone) Hx Family GI Disorders: No Hx Family Endocrine Disorder: Yes (DM) Hx Family Neuromuscular Disorders: No Hx Family Neurologic Disorders: No Hx Family HEENT Disorders: No Hx Family Autoimmune Disorders: No Internal Medicine - H&P: Meds Metformin [Glucophage] 850 mg PO TID 08/09/15 [History] Aspirin [Adult Low Dose Aspirin EC] 81 mg PO DAILY #30 tablet. 01/18/16 [Rx] Furosemide [Lasix] 40 mg PO BID 07/29/17 [History] Insulin ASPART [Novolog Flexpen] 15 unit SQ BID 07/29/17 [History] Enalapril Maleate [Vasotec] 10 mg PO TID 10/06/17 [History] Metoprolol [Lopressor] 150 mg PO DAILY 10/06/17 [History] Pravastatin Sodium [Pravachol] 20 mg PO HS 10/06/17 [History] glyBURIDE [GlyBURIDE] 3.75 mg PO DAILY 10/06/17 [History] 3 Allergy/AdvReac Type Severity Reaction Status Date / Time No Known Allergies Allergy Verified 10/06/17 00:06 All Systems PM: A 10-system review of systems was performed and is negative for pertinent findings except as documented above in the HPI. - Constitutional Constitutional: no anorexia, no chills, no excessive sweating, no fatigue, no fever(s) - Cardiovascular Cardiovascular ROS IM: dyspnea, edema, no chest pain, no diaphoresis, no irregular heart rhythm - Gastrointestinal Gastrointestinal: no abdominal pain - Constitutional Vitals: Temp Pulse Resp BP Pulse Ox 98.1 F 96 18 168/104 96 10/06/17 02:35 10/06/17 01:17 10/06/17 01:53 10/06/17 02:35 10/06/17 01:17 General appearance: Present: no acute distress, answers questions appropriately Exam: - Head Head exam: atraumatic, normocephalic, normal inspection - Eye Eye exam: Present: normal appearance, PERRL, EOMI. Absent: nystagmus - ENT ENT exam: mucous membranes moist - Neck Neck exam: Present: normal inspection, full ROM, trachea midline. Absent: lymphadenopathy - Chest Chest inspection: Present: normal inspection, symmetric chest wall rise - Respiratory Respiratory exam: Present: other (lung sounds coars throughout the periphery). Absent: respiratory distress, wheezes, stridor, accessory muscle use, prolonged expiratory phase - Cardiovascular Cardiovascular exam: Present: regular rate, normal rhythm, normal heart sounds - Abdominal Exam Abdominal exam: Present: soft, Non-Tender, normal bowel sounds - Extremities Exam Extremities exam: Present: normal inspection, full ROM, pedal edema (1+ pretibial edema noted bilaterally). Absent: tenderness - Neurological Exam Neurological exam: Present: alert, oriented X3 - Psychiatric Psychiatric exam: Present: normal affect, normal mood - Skin Skin exam: Present: warm, dry, intact, normal color Internal Med - H&P Results - Labs CBC & Chem 7: 10/06/17 00:18 10/06/17 00:18
[2017-10-06] MEDS ORDERED: Ondansetron 4 MG/2 ML VIAL IVP PRN (06:16)
[2017-10-06] MEDS ORDERED: Naloxone 0.4 MG/ML INJ IVP PRN (06:49)
[2017-10-06] MEDS ORDERED: *HR* Morphine 2 MG/ML SYRINGE IVP PRN (06:49)
[2017-10-06] MEDS: Insulin LISPRO 300 UNITS/3 ML VIAL SQ SCH ×5 (08:15→17:45)
[2017-10-06] MEDS: Metoprolol 100 MG TABLET PO SCH (09:32)
[2017-10-06] MEDS: *HR* GlyBURIDE 2.5 MG TABLET PO SCH (09:33)
[2017-10-06] MEDS: Aspirin Enteric Coated 81 MG Tablet PO SCH (09:33)
[2017-10-06] MEDS: Furosemide 40 MG/4 ML VIAL IVP SCH ×2 (09:33→20:11)
[2017-10-06] MEDS ORDERED: *HR* Labetalol 20 MG/4 ML SYRINGE IVP PRN (11:00)
--- NOTE | 2017-10-06 17:25 | Event Note ---
Date of Encounter: 10/06/17 Time of Encounter: 11:00 Patient with increased shortness of breath secondary to acute on chronic systolic heart failure due to dietary noncompliance. 1. Acute on chronic systolic heart failure -Continue IV diuresis. 2. Elevated troponins -Trending downward; secondary to demand ischemia
[2017-10-06] MEDS: *HR* Heparin 5,000 UNIT/ML VIAL SQ SCH (17:54)
[2017-10-06] MEDS ORDERED: Insulin LISPRO 300 UNITS/3 ML VIAL SQ SCH (21:00)
[2017-10-07 01:57] LABS: Basophils % 0.4 %; Eosinophils # 0.3 K/mcL (0.0-0.6); Eosinophils % 3.1 %; Hematocrit 38.1 % (37.5-50.1); Hemoglobin 12.5 g/dL (12.9-16.9); Immature Granulocytes % 0.5 % (0-4); Immature Platelets 4.1 % (1.1-6.1); Lymphocytes # 2.4 K/mcL (0.6-4.6); Lymphocytes % 28.3 %; Mean Corpuscular HGB Conc 32.8 g/dL (31.6-35.5); Mean Corpuscular Hemoglobin 28.1 pg (28.0-33.3); Mean Corpuscular Volume 85.6 fL (83.0-100.0); Mean Platelet Volume 10.6 fL (9.4-12.4); Monocytes # 0.7 K/mcL (0.0-1.3); Monocytes % 7.9 %; Neutrophils # 5.1 K/mcL (1.6-8.9); Platelet Count 212 K/mcL (140-400); Red Blood Count 4.45 M/mcL (4.19-5.50); Red Cell Distribution Width 13.6 % (11.5-14.5); Segmented Neutrophils % 59.8 %
[2017-10-07 02:22] LABS: BUN/Creatinine Ratio 20 (6-26); Blood Urea Nitrogen 26 mg/dL (8-23); Calcium 9.3 mg/dL (8.6-10.3); Carbon Dioxide 30 mEq/L (23-29); Chloride 102 mEq/L (98-107); Glucose 132 mg/dL (70-105); Osmolality,Calculated 297 (280-300); Potassium 3.4 mEq/L (3.5-5.1); Sodium 140 mEq/L (136-145); eGFR For African Americans > 60 (> 60); eGFR For Non-African Americans 54 (> 60)
[2017-10-07 10:19] VITALS: BP 157/91
--- NOTE | 2017-10-07 10:56 | Discharge Summary ---
Date of Encounter: 10/07/17 Time of Encounter: 08:00 - Discharge Diagnosis (1) Acute on chronic systolic CHF (congestive heart failure) Priority: Primary Status: Acute (2) Elevated troponin Priority: Secondary Status: Acute - Discharge Medications Home Medications: Metformin [Glucophage] 850 mg PO TID 08/09/15 [History] Aspirin [Adult Low Dose Aspirin EC] 81 mg PO DAILY #30 tablet. 01/18/16 [Rx] Furosemide [Lasix] 40 mg PO BID 07/29/17 [History] Insulin ASPART [Novolog Flexpen] 15 unit SQ BID 07/29/17 [History] Enalapril Maleate [Vasotec] 10 mg PO TID 10/06/17 [History] Metoprolol [Lopressor] 150 mg PO DAILY 10/06/17 [History] Pravastatin Sodium [Pravachol] 20 mg PO HS 10/06/17 [History] glyBURIDE [GlyBURIDE] 3.75 mg PO DAILY 10/06/17 [History] Allergies/Adverse Reactions: 3 Allergy/AdvReac Type Severity Reaction Status Date / Time No Known Allergies Allergy Verified 10/06/17 00:06 Procedures/tests Complete & Pending: Procedures Performed prior 72 hours Category Date Time Status EV echocardiogram Routine Y 10/06/17 10:42 Completed Date of admission: 10/06/17 01:27 Primary care physician: BEN Rodriguez - Patient Status Disposition: Home, Self-Care Condition: Fair - Discharge Instructions Follow Up With: Bernadette Thomas CNP [Primary Care Provider] - Hospital course: Patient is a 72-year-old male with past medical history significant for systolic (LVEF 30%)/diastolic heart failure, coronary artery disease, CVA, diabetes, hyperlipidemia and hypertension, who presented to the ER on 10/06/17 with shortness of breath. Patient reported a 2 day history of dyspnea. Family states the patient has not been compliant with dietary adherence to low sodium diet. In the ER, patient was found to have pulmonary edema and small right pleural effusion and a chest x-ray with elevated BNP of 1031. Patient was admitted to the medical surgical floor for acute on chronic systolic and diastolic heart failure. During patients hospital stay, his shortness of breath resolved after treatment with IV diuresis. Patient also with elevated cardiac biomarkers which trended downward; suspect secondary to demand ischemia. Educated family/patient about the importance of adherence to low sodium diet and to take medications as directed. Patient will be discharged to follow up with primary care provider. - Time Spent with Patient Total time spent providing and/or coordinating discharge services: Less than 30 minutes - Constitutional Vitals: Temp Pulse Resp BP Pulse Ox 97.9 F 80 16 157/91 96 10/07/17 08:10 10/07/17 08:10 10/07/17 08:10 10/07/17 08:10 10/07/17 08:10 General appearance: Present: no acute distress, answers questions appropriately - Respiratory Respiratory exam: Present: CTAB. Absent: accessory muscle use, rales, rhonchi, wheezes - Cardiovascular Cardiovascular exam: Present: RRR, +S1, +S2. Absent: diastolic murmur, gallop, rubs, systolic murmur - Expanded Lower Extremities Exam Lower Leg exam: Absent: swelling
[2017-10-07] MEDS: *HR* GlyBURIDE 2.5 MG TABLET PO SCH (12:20)
[2017-10-07] MEDS: Furosemide 40 MG/4 ML VIAL IVP SCH (12:20)
[2017-10-07] MEDS: Metoprolol 100 MG TABLET PO SCH (12:20)
[2017-10-07] MEDS: Insulin LISPRO 300 UNITS/3 ML VIAL SQ SCH ×3 (12:21→12:42)
[2017-10-07] MEDS: *HR* Heparin 5,000 UNIT/ML VIAL SQ SCH (12:21)
[2017-10-07] MEDS: Aspirin Enteric Coated 81 MG Tablet PO SCH (12:21)
== END 2017-10-07 16:17 | disposition home or self-care (01) ==
LOC: 2NENU 00:03 → EMEROO 00:03 → 2NENU 01:53
PROVIDERS: ADMIT Student in an Organized Health Care Education/Training Program; ATTEND Hospitalist

== ENCOUNTER 2018-09-02 08:19 | Observation (INO) ==
[2018-09-02 09:05] LABS: Basophils % 0.2 %; Eosinophils # 0.1 K/mcL (0.0-0.6); Eosinophils % 1.2 %; Hematocrit 37.4 % (37.5-50.1); Hemoglobin 12.2 g/dL (12.9-16.9); Immature Granulocytes % 0.3 % (0-4); Lymphocytes # 1.1 K/mcL (0.6-4.6); Lymphocytes % 11.2 %; Mean Corpuscular HGB Conc 32.6 g/dL (31.6-35.5); Mean Corpuscular Hemoglobin 27.9 pg (28.0-33.3); Mean Corpuscular Volume 85.6 fL (83.0-100.0); Mean Platelet Volume 10.1 fL (9.4-12.4); Monocytes # 0.6 K/mcL (0.0-1.3); Monocytes % 6.5 %; Neutrophils # 7.6 K/mcL (1.6-8.9); Platelet Count 196 K/mcL (140-400); Red Blood Count 4.37 M/mcL (4.19-5.50); Red Cell Distribution Width 13.4 % (11.5-14.5); Segmented Neutrophils % 80.6 %
--- NOTE | 2018-09-02 09:05 | Emergency Department Note ---
Disposition Clinical Impression: CHF (congestive heart failure), Elevated troponin, Acute on chronic systolic CHF (congestive heart failure), History of congestive heart failure, NOVAK (dyspnea on exertion) Disposition: Admitted As Inpatient Condition: Good Time of Disposition: 10:03 SOB HPI - General Chief Complaint: ED Shortness of Breath/Dyspnea Stated Complaint: SASHA Time Seen by Provider: 09/02/18 08:36 Source: patient, family Mode of arrival: ambulatory Limitations: language barrier Nursing Notes Reviewed: Yes Vital Signs Reviewed: Yes - History of Present Illness Pt is a 72 yo male with PMHx of DM and CHF with LV ICD who presents with worsening shortness of breath over the last 3 days. He also admits to having a non-productive cough over this time period. He has been short of breath like this before and states he feels like he has "water on his lungs." He also admits to having decrease urinary output, but has not had any pain or any other problems with urination. He denies fevers, chills, chest pain, abdominal pain, nausea, vomiting, unilateral leg swelling or pain. He also denies increased shortness of breath with exertion and with lying flat. He has had his flu short and pneumonia vaccine this year. He has been around his grandson who has had a cold, but no other sick contacts. His last echo in September 2017 showed LVEF of 30%. He is currently only taking metoprolol and medication for his diabetes. He sees Dr. Luciano Delvalle for Cardiology. Pt Subjective Complaint: shortness of breath, cough Onset (ago): day(s) (3) Severity: moderate Consistency/Duration: constant Improves with: nothing Worsens with: nothing Known history of: congestive heart failure, diabetes Associated symptoms: Reports: cough. Denies: chest pain, fever, sputum production, orthopnea, polyuria Treatment prior to arrival: none Cough present: Yes Cough Description: Non-Productive, Dry Sputum production: No - Related Data Home Medications Medication Instructions Recorded Confirmed Furosemide [Lasix] 40 mg PO BID 07/29/17 01/25/18 Insulin ASPART [Novolog Flexpen] 15 unit SQ BID 07/29/17 01/25/18 Pravastatin Sodium [Pravachol] 20 mg PO HS 10/06/17 01/25/18 Aspirin [Lo-Dose Aspirin EC] 81 mg PO DAILY 09/02/18 09/02/18 Metoprolol [Lopressor] 100 mg PO BID 09/02/18 09/02/18 Allergies Allergy/AdvReac Type Severity Reaction Status Date / Time No Known Allergies Allergy Verified 09/02/18 09:58 All systems ED: reviewed and negative except as stated. Review of Systems: As Per HPI Constitutional: Denies: fever, chills, weakness Cardiovascular: Denies: chest pain, palpitations, dyspnea on exertion, edema Respiratory: Reports: cough, dyspnea. Denies: sputum production Gastrointestinal: Denies: abdominal pain, nausea, vomiting Genitourinary: Reports: as per HPI. Denies: frequency Neurological: Denies: headache, weakness, numbness Endocrine: Denies: fatigue, polyuria Hematological/Lymphatic: Denies: easy bleeding, easy bruising Past Medical History - Past Medical History Medical history: Reports: CHF, coronary artery disease, CVA, diabetes, hyperlipidemia, hypertension, myocardial infarction, seizures, other Surgical history: Reports: angioplasty/stent, pacemaker/AICD, vasectomy Psychiatric history: Reports: no psych history - Social History Smoking Status: Former smoker Smokeless Tobacco Status: No Alcohol use: Reports: none Drug use: Reports: none Physical Exam - General Limitations: language barrier General appearance: alert, in no apparent distress - Head Head exam: atraumatic, normocephalic - Eye Eye exam: Present: normal appearance, PERRL, EOMI - ENT ENT exam: mucous membranes moist - Neck Neck exam: Present: normal inspection, full ROM - Chest Chest inspection: Present: normal inspection, symmetric chest wall rise. Abse nt: tenderness, rash - Respiratory Respiratory exam: Present: other (diminihsed breath sounds B/L). Absent: respiratory distress, wheezes - Cardiovascular Cardiovascular exam: Present: normal rhythm, tachycardia - Abdominal Exam Abdominal exam: Present: soft, Non-Tender. Absent: distention, guarding - Extremities Exam Extremities exam: Present: normal inspection. Absent: tenderness, pedal edema - Neurological Exam Neurological exam: Present: alert, oriented X3 - Psychiatric Psychiatric exam: Present: normal affect - Skin Skin exam: Present: warm, dry, intact Course Vital Signs Temperature 98.6 F 09/02/18 08:24 Pulse Rate 111 09/02/18 08:24 Respiratory Rate 20 09/02/18 08:24 Blood Pressure 187/114 09/02/18 08:24 O2 Sat by Pulse Oximetry 94 09/02/18 08:24 Temperature 99.2 F 09/02/18 08:32 Pulse Rate 91 09/02/18 10:18 Respiratory Rate 18 09/02/18 10:18 Blood Pressure 168/98 09/02/18 10:18 O2 Sat by Pulse Oximetry 95 09/02/18 10:18 Oxygen Delivery Oxygen Delivery Room Air Shortness of Breath/Dyspnea - [facility] Narrative Medical decision making narrative: Pt has history of acute CHF exacerbations which he has been admitted for before. His troponin is 0.06 and BNP is 902 which are both near baseline for him. CXR did not show overt pulmonary edema. 40mg Lasix IVP and 325mg ASA ordered. Due to pt cardiac history he will be admitted for CHF exacerbation, elevated troponin and further cardiac workup. Dr. Ventura has accepted the patient. - Differential Diagnosis Likely: congestive heart failure - Medical Records Medical records reviewed: Yes I reviewed the patient's medical records. - Lab Data Lab results reviewed: Yes I reviewed the patient's lab results. Result diagrams: 09/02/18 08:53 09/02/18 08:53 Lab Results 09/02/18 09/02/18 09/02/18 Range/Units 08:53 08:53 08:53 WBC 9.4 (4.3-11.1) K/mcL RBC 4.37 (4.19-5.50) M/mcL Hgb 12.2 L (12.9-16.9) g/dL Hct 37.4 L (37.5-50.1) % MCV 85.6 (83.0-100.0) fL MCH 27.9 L (28.0-33.3) pg MCHC 32.6 (31.6-35.5) g/dL RDW 13.4 (11.5-14.5) % Plt Count 196 (140-400) K/mcL MPV 10.1 (9.4-12.4) fL Immature Gran % 0.3 (0-4) % Seg Neutrophils % 80.6 % Lymphocytes % 11.2 % Monocytes % 6.5 % Eosinophils % 1.2 % Basophils % 0.2 % Neutrophils # 7.6 (1.6-8.9) K/mcL Lymphocytes # 1.1 (0.6-4.6) K/mcL Monocytes # 0.6 (0.0-1.3) K/mcL Eosinophils # 0.1 (0.0-0.6) K/mcL Basophils # 0.0 (0.0-0.2) K/mcL Sodium 138 (136-145) mEq/L Potassium 3.6 (3.5-5.1) mEq/L Chloride 104 (98-107) mEq/L Carbon Dioxide 25 (23-29) mEq/L BUN 23 (8-23) mg/dL Creatinine 1.19 (0.70-1.30) mg/dL Est GFR ( Amer) > 60 (> 60) Est GFR (Non-Af Amer) > 60 (> 60) BUN/Creatinine Ratio 19 (6-26) Glucose 263 H (70-105) mg/dL Calculated Osmolality 299 (280-300) Calcium 9.1 (8.6-10.3) mg/dL Troponin I 0.06 H* (< 0.04) ng/mL B-Natriuretic Peptide 902 H (Less than 100) pg/mL - Radiology Data Radiology results reviewed: Yes I reviewed the patient's radiology results. - EKG Data EKG attestation: Yes I reviewed and interpreted this EKG. EKG results narrative: HR 108, CA interval 164, QRS duration 114, QT 353, QTc 474. Sinus tachycardia with LVH and IVCD repol abnormality. Mild ST segment depression in leads I, V5 and V6 which is unchanged from previous EKG done in January of this year.
[2018-09-02 09:28] LABS: BUN/Creatinine Ratio 19 (6-26); Blood Urea Nitrogen 23 mg/dL (8-23); Calcium 9.1 mg/dL (8.6-10.3); Carbon Dioxide 25 mEq/L (23-29); Chloride 104 mEq/L (98-107); Glucose 263 mg/dL (70-105); Osmolality,Calculated 299 (280-300); Potassium 3.6 mEq/L (3.5-5.1); Sodium 138 mEq/L (136-145); eGFR For Non-African Americans > 60 (> 60)
[2018-09-02 09:30] LABS: Troponin I 0.06 ng/mL (< 0.04)
[2018-09-02] MEDS ORDERED: Furosemide 40 MG/4 ML VIAL IVP ONE (09:33)
[2018-09-02] MEDS ORDERED: Aspirin 81 MG TAB.CHEW PO ONE (09:47)
--- NOTE | 2018-09-02 10:05 | Emergency Department Note ---
Disposition Clinical Impression: History of congestive heart failure, Elevated troponin, NOVAK (dyspnea on exertion) Disposition: Admitted As Inpatient General Adult HPI - General Chief complaint: ED Shortness of Breath/Dyspnea Stated complaint: SASHA Time Seen by Provider: 09/02/18 08:36 Source: patient, family Mode of arrival: ambulatory Limitations: language barrier - History of Present Illness Pain Scale: 0 - Related Data Home Medications Medication Instructions Recorded Confirmed Furosemide [Lasix] 40 mg PO DAILY 07/29/17 09/02/18 Insulin ASPART [Novolog Flexpen] 15 unit SQ BID 07/29/17 09/02/18 Pravastatin Sodium [Pravachol] 20 mg PO HS 10/06/17 09/02/18 Aspirin [Lo-Dose Aspirin EC] 81 mg PO DAILY 09/02/18 09/02/18 Metoprolol [Lopressor] 100 mg PO BID 09/02/18 09/02/18 Allergies Allergy/AdvReac Type Severity Reaction Status Date / Time No Known Allergies Allergy Verified 09/02/18 09:58 Constitutional: Denies: fever, chills, weakness Cardiovascular: Denies: chest pain, palpitations, dyspnea on exertion, edema Respiratory: Reports: cough, dyspnea. Denies: sputum production Gastrointestinal: Denies: abdominal pain, nausea, vomiting Genitourinary: Reports: as per HPI. Denies: frequency Neurological: Denies: headache, weakness, numbness Endocrine: Denies: fatigue, polyuria Hematological/Lymphatic: Denies: easy bleeding, easy bruising Past Medical History - Past Medical History Medical history: Reports: CHF, coronary artery disease, CVA, diabetes, hyperlipidemia, hypertension, myocardial infarction, seizures, other Surgical history: Reports: angioplasty/stent, pacemaker/AICD, vasectomy Psychiatric history: Reports: no psych history - Social History Smoking Status: Former smoker Smokeless Tobacco Status: No Alcohol use: Reports: none Drug use: Reports: none Physical Exam - General Limitations: language barrier General appearance: alert, in no apparent distress Course Vital Signs Temperature 98.6 F 09/02/18 08:24 Pulse Rate 111 09/02/18 08:24 Respiratory Rate 20 09/02/18 08:24 Blood Pressure 187/114 09/02/18 08:24 O2 Sat by Pulse Oximetry 94 09/02/18 08:24 Temperature 99.2 F 09/02/18 08:32 Pulse Rate 100 09/02/18 08:47 Respiratory Rate 18 09/02/18 08:47 Blood Pressure 179/96 09/02/18 08:47 O2 Sat by Pulse Oximetry 92 09/02/18 08:47 Oxygen Delivery Oxygen Delivery Room Air Medical Decision Making - MDM Narrative Medical decision making narrative: Patient's EKG does not show any new changes. This is compared to previous EKG from January 2018. - Medical Records Medical records reviewed: Yes I reviewed the patient's medical records. - Lab Data Lab results reviewed: Yes I reviewed the patient's lab results. Result diagrams: 09/02/18 08:53 09/02/18 08:53 Lab Results 09/02/18 09/02/18 09/02/18 Range/Units 08:53 08:53 08:53 WBC 9.4 (4.3-11.1) K/mcL RBC 4.37 (4.19-5.50) M/mcL Hgb 12.2 L (12.9-16.9) g/dL Hct 37.4 L (37.5-50.1) % MCV 85.6 (83.0-100.0) fL MCH 27.9 L (28.0-33.3) pg MCHC 32.6 (31.6-35.5) g/dL RDW 13.4 (11.5-14.5) % Plt Count 196 (140-400) K/mcL MPV 10.1 (9.4-12.4) fL Immature Gran % 0.3 (0-4) % Seg Neutrophils % 80.6 % Lymphocytes % 11.2 % Monocytes % 6.5 % Eosinophils % 1.2 % Basophils % 0.2 % Neutrophils # 7.6 (1.6-8.9) K/mcL Lymphocytes # 1.1 (0.6-4.6) K/mcL Monocytes # 0.6 (0.0-1.3) K/mcL Eosinophils # 0.1 (0.0-0.6) K/mcL Basophils # 0.0 (0.0-0.2) K/mcL Sodium 138 (136-145) mEq/L Potassium 3.6 (3.5-5.1) mEq/L Chloride 104 (98-107) mEq/L Carbon Dioxide 25 (23-29) mEq/L BUN 23 (8-23) mg/dL Creatinine 1.19 (0.70-1.30) mg/dL Est GFR ( Amer) > 60 (> 60) Est GFR (Non-Af Amer) > 60 (> 60) BUN/Creatinine Ratio 19 (6-26) Glucose 263 H (70-105) mg/dL Calculated Osmolality 299 (280-300) Calcium 9.1 (8.6-10.3) mg/dL Troponin I 0.06 H* (< 0.04) ng/mL B-Natriuretic Peptide 902 H (Less than 100) pg/mL - Radiology Data Radiology results reviewed: Yes I reviewed the patient's radiology results. Critical Care Time Critical Care Time: No Attestation Statement - Attestation Attestation: I examined this patient and my medical decision-making was reviewed with the Resident Physician. I agree with the documented findings, disposition and treatment plan as described except to the extent set forth below. 72-year-old male presents emergency room for shortness of breath 3 days. History of CHF. He does have an AICD. He does follow with cardiology here. He denies any chest pain over the past 3 days. No significant cough. Just admits to dyspnea on exertion and increasing shortness of breath. No documented fevers. There has been no weight gain. No lower extremity pain or swelling that is new. No history of PE or DVT. Patient does have a slightly elevated troponin. EKG did not reveal any signs of acute ischemia. Patient will need to be admitted for further cardiac workup. He was given some IV Lasix as he does have some pulmonary vascular congestion. Also given him aspirin. Again he is chest pain-free. Vitals are stable.
[2018-09-02] MEDS ORDERED: *HR* Dextrose 50 % in Water (Syg) 50 ML SYRINGE IVP PRN (10:39)
[2018-09-02] MEDS ORDERED: Dextrose Gel 15 GM/37.5 ML TUBE PO PRN ×2 (10:39)
[2018-09-02] MEDS ORDERED: D5% in Water 1,000 ML IVC PRN (10:39)
[2018-09-02] MEDS ORDERED: Naloxone 0.4 MG/ML INJ IVP PRN (10:40)
[2018-09-02] MEDS ORDERED: Lisinopril 20 MG TABLET PO SCH (10:45)
[2018-09-02] MEDS ORDERED: Aspirin Enteric Coated 81 MG Tablet PO SCH (10:45)
--- NOTE | 2018-09-02 10:52 | Internal Med History&Physical ---
Date of Encounter: 09/02/18 Time of Encounter: 11:31 Internal Medicine - H&P: HPI Chief complaint: I think I have water in my lungs Admitted From: Home Plans for Post Hospital Care: Home History of present illness: Mr. Dela Cruz is a 19-year-old male with medical history of nonischemic cardiomyopathy with ejection fraction of 30%, status post ICD, chronic kidney disease, peripheral artery disease with stents, CHF with reduced ejection fraction, diabetes mellitus, hypertension presented to the emergency room complaining of shortness of breath. Patient is [place]-speaking and his pro times at the bedside to interpret. She reports the patient had flulike symptoms about a week ago when he was around his grandchildren to had the similar symptoms. However, patient's shortness of breath has continued to worsen and this morning, the patient reported to her that he felt the same way he felt when there was water in his lungs. He reports mild ankle swelling, denies orthopnea or PND, he denies chest pain, he denies co ugh tenderness, palpitations, dizziness, nausea or diaphoresis. He his not compliant with his medications. The daughter reports going to the patient's PCP on Thursday 08/30 who prescribed him Lasix, however they were Unable to fruit or nut picker Lasix over the weekend. He denies any changes in bowel or urinary habits. He denies illicit drug use, he does not smoke. Workup in the emergency room showed mild anemia, chemistries at baseline, hyperglycemia, troponin of 0.06, BNP was elevated at 92, blood pressure was uncontrolled. chest x-ray showed mild right costophrenic angle blunting likely pleural effusion. No overt pulmonary edema, patient has stable cardiomegaly. He will be placed on observation for acute on chronic CHF. He is full code. Past Med Surg Social Fam HX - Past Medical History Medical history: CHF, coronary artery disease, CVA, diabetes, hyperlipidemia, hypertension, myocardial infarction, seizures, other Additional medical history: gout Psychiatric history: no psych history - Past Surgical History Surgical History: angioplasty/stent, pacemaker/AICD, vasectomy Additional surgical history: 01/24/18 angiogram with stents right leg - Social History Smoking Status: Former smoker Smokeless Tobacco Status: No Alcohol use: none Drug use: none - Family History Father Adopted: No Living Status: Hx Family Cardiac Disorders: Yes Hx Family Respiratory Disorders: No Hx Family Cancer: No Hx Family GI Disorders: No Hx Family Endocrine Disorder: No Hx Family Neuromuscular Disorders: No Hx Family Neurologic Disorders: No Hx Family HEENT Disorders: No Hx Family Autoimmune Disorders: No Daughter Adopted: No Family Member Ethnicity: Living Status: Still Living Hx Family Cardiac Disorders: Yes (brother) Hx Family Respiratory Disorders: No Hx Family Cancer: Yes (grandmother) Hx Family GI Disorders: No Hx Family Endocrine Disorder: Yes Hx Family Neuromuscular Disorders: No Hx Family Neurologic Disorders: No Hx Family HEENT Disorders: No Mother Adopted: No Family Member Ethnicity: Living Status: Hx Family Cardiac Disorders: No Hx Family Respiratory Disorders: No Hx Family Cancer: Yes (bone) Hx Family GI Disorders: No Hx Family Endocrine Disorder: Yes (DM) Hx Family Neuromuscular Disorders: No Hx Family Neurologic Disorders: No Hx Family HEENT Disorders: No Hx Family Autoimmune Disorders: No Internal Medicine - H&P: Meds Furosemide [Lasix] 40 mg PO DAILY 07/29/17 [History] Insulin ASPART [Novolog Flexpen] 15 unit SQ BID 07/29/17 [History] Pravastatin Sodium [Pravachol] 20 mg PO HS 10/06/17 [History] Aspirin [Lo-Dose Aspirin EC] 81 mg PO DAILY 09/02/18 [History] Metoprolol [Lopressor] 100 mg PO BID 09/02/18 [History] Allergy/AdvReac Type Severity Reaction Status Date / Time No Known Allergies Allergy Verified 09/02/18 09:58 All Systems PM: A 10-system review of systems was performed and is negative for pertinent findings except as documented above in the HPI. - Constitutional Constitutional: as per HPI - EENT Eyes: as per HPI Ears: as per HPI Nose, mouth and throat: as per HPI - Cardiovascular Cardiovascular ROS IM: as per HPI - Respiratory Respiratory: as per HPI - Gastrointestinal Gastrointestinal: as per HPI - Musculoskeletal Musculoskeletal ROS IM: as per HPI - Integumentary Integumentary IM: as per HPI - Neurological Neurological ROS: as per HPI - Hematologic/Lymphatic Hematologic/Lymphatic: as per HPI - Constitutional Vitals: Temp Pulse Resp BP Pulse Ox 99.2 F 91 18 168/98 95 09/02/18 08:32 09/02/18 10:18 09/02/18 10:18 09/02/18 10:18 09/02/18 10:18 Exam: VSS, Stable Gen: Calm, not in distress, speaks full sentences HEENT: Moist oral mucosa, sclera anicteric, not pale Chest: Equal chest movement bilaterally REsp: CTAB, diminished breath sound, no crackles , wheezes or rhonchi Heart: S1, S2, only, no m/g/r Abdomen: Obese, soft, not tender, BS present in al quadrants Extremities: Joint inspection is WNL, trace piting pedal edema, pulses present bilaterally Neuro: AAOX3, no speech deficits, moves all extremities equally, no facial paralysis Psych: Affect is appropriate Internal Med - H&P Results - Labs CBC & Chem 7: 09/02/18 08:53 09/02/18 08:53 Labs: Short CBC 09/02/18 Range/Units 08:53 WBC 9.4 (4.3-11.1) K/mcL Hgb 12.2 L (12.9-16.9) g/dL Hct 37.4 L (37.5-50.1) % Plt Count 196 (140-400) K/mcL Neutrophils # 7.6 (1.6-8.9) K/mcL BMP 09/02/18 08:53 Sodium 138 Potassium 3.6 Chloride 104 Carbon Dioxide 25 BUN 23 Creatinine 1.19 Glucose 263 H Calcium 9.1 Cardiac Enzymes 09/02/18 Range/Units 08:53 Troponin I 0.06 H* (< 0.04) ng/mL - Impressions ITS Impressions Chest X-Ray 09/02/18 08:46 IMPRESSION: Stable mild blunting of right costophrenic angle from remote exam 10/06/2017. This could reflect small right pleural effusion or chronic pleural thickening. No acute lung parenchymal abnormality noted. Stable cardiomegaly. D/ / 09/02/2018 10:02:48 Kwaku Romeo MD / misty Interpreting Provider: Kwaku Romeo MD - Assessment and plan (1) Acute on chronic systolic CHF (congestive heart failure) Current Visit: Yes Status: Acute Assessment and plan: Give Lasix IV 40 mg once, continue with IV 40 mg daily Echocardiogram from 09/2017 noted, EF of 50%, repeat echo scheduled Check weight daily Strict intake and output Fluid restriction diet to 1500 mL daily Reinforce compliance Patient may need no significant of prior to discharge Patient is not hypoxic at this time (2) Elevated troponin Current Visit: Yes Status: Acute Assessment and plan: Initial troponin of 0.06 Patient has no chest pain EKG showed sinus tachycardia with no ST segment or T-wave changes We will cycle troponins Follow echocardiogram (3) CKD (chronic kidney disease) stage 3, GFR 30-59 ml/min Current Visit: Yes Status: Chronic Assessment and plan: Renal function is at baseline (4) Cardiac enzymes elevated Current Visit: Yes Status: Acute (5) DVT prophylaxis Current Visit: No Status: Acute (6) Diabetes mellitus Current Visit: Yes Status: Chronic Assessment and plan: Continue basal and prandial insulin FS ACHS Diabetic diet Qualifiers: Diabetes mellitus type: type 2 Diabetes mellitus manager licensing insulin use: unspecified manager licensing insulin use status Diabetes mellitus complication status: with unspecified complications Qualified Code(s): E11.8 - Type 2 d iabetes mellitus with unspecified complications (7) History of seizure Current Visit: Yes Status: Chronic Assessment and plan: Per Patient's daughter, he is not on any antiseizure medications Continue to monitor Seizure precautions (8) CAD (coronary artery disease) Current Visit: Yes Status: Chronic Assessment and plan: Continue aspirin, continue beta blockers, continue ARB Qualifiers: Coronary Disease-Associated Artery/Lesion type: [place] artery [place] vs. transplanted heart: [place] heart Associated angina: angina presence unspecified Qualified Code(s): I25.10 - Atherosclerotic heart disease of [place] coronary artery without angina pectoris - Time Spent With Patient Total time spent is greater than 50% in coordination of care (as documented) at patient's floor/unit and/or counseling patient:
[2018-09-02] MEDS: Insulin LISPRO 300 UNITS/3 ML VIAL SQ SCH ×2 (11:53→17:34)
[2018-09-02] MEDS: Metoprolol 100 MG TABLET PO SCH ×2 (11:53→21:20)
[2018-09-02] MEDS ORDERED: Ipratropium/Albuterol Neb 3 ML IH STA (15:03)
[2018-09-02 15:45] LABS: ABG Base Excess 5 mEq/L (-2 to 3); ABG HCO3 30 mEq/L (21-27); ABG Oxygen Saturation 97 % (95-98); ABG PCO2 43 mmHg (35-45); ABG PH 7.45 pH Units (7.32-7.45); ABG PO2 84 mmHg (85-104); ABG TCO2 31 mEq/L (20-26)
[2018-09-02] MEDS ORDERED: Perflutren Lipid Microsphere 1.3 ML in 0.9 % Sodium Chloride 8.7 ML IVP ONE (20:28)
[2018-09-02] MEDS ORDERED: Insulin LISPRO 300 UNITS/3 ML VIAL SQ SCH (21:00)
[2018-09-02] MEDS ORDERED: Insulin DETEMIR 100 UNIT/ML X5UNITS SQ SCH (21:00)
[2018-09-03 05:11] LABS: Basophils % 0.3 %; Eosinophils # 0.2 K/mcL (0.0-0.6); Eosinophils % 2.7 %; Hematocrit 39.8 % (37.5-50.1); Hemoglobin 12.6 g/dL (12.9-16.9); Immature Granulocytes % 0.3 % (0-4); Lymphocytes % 22.5 %; Mean Corpuscular HGB Conc 31.7 g/dL (31.6-35.5); Mean Corpuscular Hemoglobin 27.7 pg (28.0-33.3); Mean Corpuscular Volume 87.5 fL (83.0-100.0); Mean Platelet Volume 10.3 fL (9.4-12.4); Monocytes # 0.8 K/mcL (0.0-1.3); Monocytes % 8.7 %; Neutrophils # 5.8 K/mcL (1.6-8.9); Platelet Count 209 K/mcL (140-400); Red Blood Count 4.55 M/mcL (4.19-5.50); Red Cell Distribution Width 13.2 % (11.5-14.5); Segmented Neutrophils % 65.5 %
[2018-09-03 05:31] LABS: Calcium 9.2 mg/dL (8.6-10.3); Potassium 3.5 mEq/L (3.5-5.1)
[2018-09-03] MEDS: Insulin LISPRO 300 UNITS/3 ML VIAL SQ SCH ×2 (08:11→12:33)
[2018-09-03] MEDS: Aspirin Enteric Coated 81 MG Tablet PO SCH ×2 (08:40→08:58)
[2018-09-03] MEDS: Metoprolol 100 MG TABLET PO SCH (08:41)
[2018-09-03] MEDS ORDERED: Furosemide 40 MG/4 ML VIAL IVP SCH (09:00)
[2018-09-03] MEDS ORDERED: Aspirin Enteric Coated 81 MG Tablet PO SCH (10:45)
[2018-09-03 12:06] VITALS: BP 149/79
--- NOTE | 2018-09-03 13:58 | Electrocardiograph Report ---
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
--- NOTE | 2018-09-03 14:55 | Discharge Summary ---
- NOTES TO OUTPATIENT PROVIDER Notes to Outpatient Provider: Please follow up with PCP in one week. Please follow-up with cardiology in one week. Plesase continue Lasix 40mg PO daily Date of Encounter: 09/03/18 Time of Encounter: 14:54 - Discharge Diagnosis (1) Acute on chronic systolic CHF (congestive heart failure) Priority: Primary Status: Acute (2) Elevated troponin Priority: Primary Status: Acute (3) Diabetes mellitus Priority: Secondary Status: Chronic Qualifiers: Diabetes mellitus type: type 2 Diabetes mellitus senior living insulin use: unspecified supplier quality insulin use status Diabetes mellitus complication status: with unspecified complications Qualified Code(s): E11.8 - Type 2 diabetes mellitus with unspecified complications (4) CAD (coronary artery disease) Priority: Secondary Status: Chronic Qualifiers: Coronary Disease-Associated Artery/Lesion type: [place] artery [place] vs. transplanted heart: [place] heart Associated angina: angina presence unspecified Qualified Code(s): I25.10 - Atherosclerotic heart disease of [place] coronary artery without angina pectoris (5) History of seizure Priority: Secondary Status: Chronic (6) DVT prophylaxis Priority: Secondary Status: Acute (7) CKD (chronic kidney disease) stage 3, GFR 30-59 ml/min Priority: Secondary Status: Chronic Hospital course: Mr. Dela Cruz is a 72 year old male with medical history of nonischemic cardiomyopathy with ejection fraction of 30%, status post ICD, chronic kidney disease stage 3, peripheral artery disease with stents, Systolic CHF with reduced ejection fraction, diabetes mellitus, hypertension presented to the emergency room complaining of shortness of breath. Workup in the emergency room showed mild anemia, chemistries at baseline, hyperglycemia, troponin of 0.06, BNP was elevated at 92, blood pressure was uncontrolled. chest x-ray showed mild right costophrenic angle blunting likely pleural effusion. No overt pulmonary edema, He was admitted on the hospital and placed him on electronic device monitor. Checked his serial troponin , which were adynamic and slightly elevated @ 0.06. Mostly due to demand ischemia with his acute on chronic systolic CHF exacerbation. Patient was given IV Lasix and his symptoms improved. Patient states he is feeling a lot better and back to baseline. His repeat 2 D echo showed worsening LVEF @ 20-25%.. Recommend to f/u with Cardiology as an out pt. Also added ARB Losartan 25mg PO Daily. We did ambulating pulse oxy, he did well on RA. - Time Spent with Patient Total time spent providing and/or coordinating discharge services: - Discharge Medications Prescriptions: Furosemide [Lasix] 40 mg PO DAILY #30 tablet Losartan [Cozaar] 25 mg PO DAILY #30 tablet Sitagliptin Phosphate [Januvia] 50 mg PO DAILY #30 tab Home Medications: Insulin ASPART [Novolog Flexpen] 15 unit SQ BID 07/29/17 [History] Pravastatin Sodium [Pravachol] 20 mg PO HS 10/06/17 [History] Aspirin [Lo-Dose Aspirin EC] 81 mg PO DAILY 09/02/18 [History] Metoprolol [Lopressor] 100 mg PO BID 09/02/18 [History] Furosemide [Lasix] 40 mg PO DAILY #30 tablet 09/03/18 [Rx] Losartan [Cozaar] 25 mg PO DAILY #30 tablet 09/03/18 [Rx] Sitagliptin Phosphate [Januvia] 50 mg PO DAILY #30 tab 09/03/18 [Rx] Allergies/Adverse Reactions: Allergy/AdvReac Type Severity Reaction Status Date / Time No Known Allergies Allergy Verified 09/02/18 09:58 Date of admission: 09/02/18 09:50 Primary care physician: PCP NONE - Constitutional Vitals: Temp Pulse Resp BP Pulse Ox 98.2 F 64 16 149/79 98 09/03/18 11:59 09/03/18 11:59 09/03/18 11:59 09/03/18 11:59 09/03/18 11:59 General appearance: Present: cooperative, A&O X 3, answers questions appropriately Exam: Gen: Alert, awake, Oriented to time,place and person Chest: Diminished breath sounds B/L, no wheezing, No crackles, mild rales Heart: S1S2+ RRR No murmurs Abd: Soft, NT, BS +, No organomegaly Ext: 1+ edema, pulses are palpable, No calf tenderness Neuro : Benign findings Skin: No rash. - Patient Status Disposition: Home, Self-Care Condition: Good Overall status at discharge: patient is back to baseline - Discharge Instructions Follow Up With: Marques Thomas [Resident] - Cristian Ladd DO [Partnered Physician] - - Diet and Activity Activity: increase activity as tolerated Diet: low salt diet
== END 2018-09-03 15:48 | disposition home or self-care (01) ==
LOC: EMEROOARM 08:19 → 3BNU 08:19
PROVIDERS: ADMIT Internal Medicine; ATTEND Internal Medicine

== ENCOUNTER 2019-03-26 10:23 | Inpatient (IN) ==
[2019-03-26 11:01] LABS: Basophils % 0.2 %; Eosinophils # 0.2 K/mcL (0.0-0.6); Hematocrit 40.2 % (37.5-50.1); Hemoglobin 12.6 g/dL (12.9-16.9); Immature Granulocytes % 0.5 % (0-4); Lymphocytes # 1.6 K/mcL (0.6-4.6); Mean Corpuscular HGB Conc 31.3 g/dL (31.6-35.5); Mean Corpuscular Hemoglobin 27.6 pg (28.0-33.3); Monocytes # 0.6 K/mcL (0.0-1.3); Monocytes % 7.4 %; Platelet Count 216 K/mcL (140-400); Red Blood Count 4.57 M/mcL (4.19-5.50); Red Cell Distribution Width 13.5 % (11.5-14.5); Segmented Neutrophils % 70.9 %; White Blood Count 8.5 K/mcL (4.3-11.1)
--- NOTE | 2019-03-26 11:19 | Emergency Department Note ---
Disposition Clinical Impression: Acute respiratory failure with hypoxia Disposition: Admitted As Inpatient Condition: Fair Referrals: Antoni Stern MD [Primary Care Provider] - Forms: ED Satisfaction Letter Time of Disposition: 15:06 SOB HPI - General Chief Complaint: ED Shortness of Breath/Dyspnea Stated Complaint: SASHA Time Seen by Provider: 03/26/19 11:00 Source: family Limitations: other - History of Present Illness 73-year-old male presents to emergency room with complaints of shortness of breath. The patient actually was seen by wire twisting machine operator yesterday. Family is at the bedside, patient speaks limited Lao, family is doing translating at the bedside. The patient has history of chronic shortness of breath however last night could not get much sleep because he was short of breath, he is definitely orthopneic. Patient denies any chest pain. He has had a mild cough that is nonproductive. No fevers or chills noted. Patient denies any abdominal pain. Patient does have a history of leg swelling. The patient is on diuretics as well. The patient denies any other or GI complaints. The patient denies any rash. Otherwise nothing else makes symptoms much better. - Related Data Home Medications Medication Instructions Recorded Confirmed Insulin ASPART [Novolog Flexpen] 22 unit SQ BID 07/29/17 03/26/19 Aspirin [Lo-Dose Aspirin EC] 81 mg PO DAILY 09/02/18 03/26/19 Atorvastatin Calcium [Lipitor] 40 mg PO DAILY 10/07/18 10/09/18 Metoprolol [Lopressor] 25 mg PO BID 10/10/18 03/26/19 Previous Rx's Medication Instructions Recorded Potassium Chloride [K-Tab ER] 10 meq PO DAILY #30 tablet.er 10/08/18 Furosemide [Lasix] 40 mg PO DAILY #60 tablet 10/13/18 amLODIPine [Norvasc] 5 mg PO DAILY #30 tablet 10/13/18 Allergies Allergy/AdvReac Type Severity Reaction Status Date / Time No Known Allergies Allergy Verified 03/26/19 10:32 Review of Systems: As mentioned per history of present illness and as follows. Constitutional: Negative for chills or fever HENT: Negative for sore throat. Eyes: Negative for visual disturbance Respiratory: Positive for shortness of breath. Cardiovascular: Negative for palpitations. Gastrointestinal: Negative for abdominal pain Genitourinary: Negative for dysuria Musculoskeletal: Negative for back pain. Skin: Negative for rash. Neurological: Negative for focal weakness Psychiatric/Behavioral: Negative for depression Past Medical History - Past Medical History Medical history: Reports: CHF, coronary artery disease, CVA, diabetes, hyperlipidemia, hypertension, renal disease, seizures Surgical history: Reports: angioplasty/stent, pacemaker/AICD, vasectomy Psychiatric history: Reports: no psych history - Social History Smoking Status: Former smoker Smokeless Tobacco Status: No Alcohol use: Reports: none Drug use: Reports: none Physical Exam PHYSICAL EXAM Constitutional: Well developed, Well nourished, No acute distress, Non-toxic appearance. HENT: Normocephalic, Atraumatic, Bilateral external ears normal, Oropharynx moist, No oral exudates, Nose normal. Neck- Normal range of motion, No tenderness, Supple. Eyes: PERRL, EOMI, Conjunctiva normal,. Cardiovascular: Regular rate and rhythm without clicks, rubs, gallops or m urmurs. Respiratory: Normal breath sounds, No respiratory distress, No wheezing, rhonchi, or crackles. GI: Soft, nontender, no evidence of guarding or peritoneal signs. Bowel sounds are active. Musculoskeletal: Good range of motion in all major joints. No tenderness to palpation or major deformities noted. +5/5 strength noted to all extremities. Integument: Warm, Dry, No erythema, No rash. Trace edema noted bilateral lower extremities. Neurologic: Alert & oriented x 3, Normal sensory function, No focal deficits noted. CN II-XII grossly intact. - General Limitations: other General appearance: alert, in no apparent distress Course Vital Signs Temperature 98.9 F 03/26/19 10:32 Pulse Rate 77 03/26/19 10:32 Respiratory Rate 20 03/26/19 10:32 Blood Pressure 146/84 03/26/19 10:32 O2 Sat by Pulse Oximetry 95 03/26/19 10:32 Temperature 98.9 F 03/26/19 10:32 Pulse Rate 67 03/26/19 12:08 Respiratory Rate 22 03/26/19 12:08 Blood Pressure 138/78 03/26/19 12:08 O2 Sat by Pulse Oximetry 99 03/26/19 12:09 Oxygen Delivery Oxygen Delivery Nasal Cannula Shortness of Breath/Dyspnea - [facility] Narrative Medical decision making narrative: EKG was performed that showed evidence of sinus rhythm 73 beats a minute, patient does have LVH noted and the EKG. The patient does have ST segment depression noted in each one, 2, aVL, also noted over V5, V6 with T wave in version to these leads as well consistent with ST segment changes associated with LVH. EKG is very similar to EKG from September 2018. Patient has O2 saturation at rest at 96% on room air. Patient did have desaturation to 88% with ambulation here in the emergency room. The patient has a negative chest x-ray. The patient has negative d-dimer. The patient is not tachycardic. Patient at this point time did have CT scan as well. The CT scan shows evidence of pulmonary hypertension. This may be causing his hypoxia. The case was also discussed with wire twisting machine operator. At this time patient is going to be admitted for further evaluation regarding hypoxia. Patient did have case discussed with hospitalist in full detail and the patient will be admitted in stable condition. Patient did have a slightly elevated troponin, however the patient does not have any chest pain, troponin was also elevated one week ago at 0.08. Final impression 1. Acute respiratory failure with hypoxia - Lab Data Result diagrams: 03/26/19 10:51 03/26/19 10:51 Lab Results 03/26/19 03/26/19 03/26/19 Range/Units 10:51 10:51 10:51 WBC 8.5 (4.3-11.1) K/mcL RBC 4.57 (4.19-5.50) M/mcL Hgb 12.6 L (12.9-16.9) g/dL Hct 40.2 (37.5-50.1) % MCV 88.0 (83.0-100.0) fL MCH 27.6 L (28.0-33.3) pg MCHC 31.3 L (31.6-35.5) g/dL RDW 13.5 (11.5-14.5) % Plt Count 216 (140-400) K/mcL MPV 10.0 (9.4-12.4) fL Immature Gran % 0.5 (0-4) % Seg Neutrophils % 70.9 % Lymphocytes % 19.0 % Monocytes % 7.4 % Eosinophils % 2.0 % Basophils % 0.2 % Neutrophils # 6.0 (1.6-8.9) K/mcL Lymphocytes # 1.6 (0.6-4.6) K/mcL Monocytes # 0.6 (0.0-1.3) K/mcL Eosinophils # 0.2 (0.0-0.6) K/mcL Basophils # 0.0 (0.0-0.2) K/mcL D-Dimer (0-500) ng/mLFEU Sodium 139 (136-145) mEq/L Potassium 4.6 (3.5-5.1) mEq/L Chloride 104 (98-107) mEq/L Carbon Dioxide 28 (23-29) mEq/L BUN 34 H (8-23) mg/dL Creatinine 1.78 H (0.70-1.30) mg/dL Est GFR ( Amer) 46 L (> 60) Est GFR (Non-Af Amer) 38 L (> 60) BUN/Creatinine Ratio 19 (6-26) Glucose 113 H (70-105) mg/dL Calculated Osmolality 296 (280-300) Calcium 9.2 (8.6-10.3) mg/dL Troponin I 0.09 H* (< 0.04) ng/mL B-Natriuretic Peptide 877 H (Less than 100) pg/mL 03/26/19 Range/Units 10:51 WBC (4.3-11.1) K/mcL RBC (4.19-5.50) M/mcL Hgb (12.9-16.9) g/dL Hct (37.5-50.1) % MCV (83.0-100.0) fL MCH (28.0-33.3) pg MCHC (31.6-35.5) g/dL RDW (11.5-14.5) % Plt Count (140-400) K/mcL MPV (9.4-12.4) fL Immature Gran % (0-4) % Seg Neutrophils % % Lymphocytes % % Monocytes % % Eosinophils % % Basophils % % Neutrophils # (1.6-8.9) K/mcL Lymphocytes # (0.6-4.6) K/mcL Monocytes # (0.0-1.3) K/mcL Eosinophils # (0.0-0.6) K/mcL Basophils # (0.0-0.2) K/mcL D-Dimer 499 (0-500) ng/mLFEU Sodium (136-145) mEq/L Potassium (3.5-5.1) mEq/L Chloride (98-107) mEq/L Carbon Dioxide (23-29) mEq/L BUN (8-23) mg/dL Creatinine (0.70-1.30) mg/dL Est GFR ( Amer) (> 60) Est GFR (Non-Af Amer) (> 60) BUN/Creatinine Ratio (6-26) Glucose (70-105) mg/dL Calculated Osmolality (280-300) Calcium (8.6-10.3) mg/dL Troponin I (< 0.04) ng/mL B-Natriuretic Peptide (Less than 100) pg/mL
[2019-03-26 11:23] LABS: Calcium 9.2 mg/dL (8.6-10.3); Potassium 4.6 mEq/L (3.5-5.1)
[2019-03-26 11:29] LABS: Troponin I 0.09 ng/mL (< 0.04)
[2019-03-26] MEDS ORDERED: Acetaminophen 325 MG TABLET PO PRN (15:29)
[2019-03-26] MEDS ORDERED: Naloxone 0.4 MG/ML INJ IVP PRN (15:29)
[2019-03-26] MEDS ORDERED: Ondansetron 4 MG/2 ML VIAL IVP PRN (15:29)
[2019-03-26] MEDS ORDERED: Furosemide 40 MG/4 ML VIAL IVP ONE (15:36)
[2019-03-26] MEDS ORDERED: *HR* Dextrose 50 % in Water (Syg) 50 ML SYRINGE IVP PRN (15:37)
[2019-03-26] MEDS ORDERED: Dextrose Gel 15 GM/37.5 ML TUBE PO PRN ×2 (15:37)
[2019-03-26] MEDS ORDERED: D5% in Water 1,000 ML IVC PRN (15:37)
--- NOTE | 2019-03-26 15:49 | Internal Med History&Physical ---
Date of Encounter: 03/26/19 Time of Encounter: 15:40 Internal Medicine - H&P: HPI Chief complaint: SOB Admitted From: Emergency Dept History of present illness: Antonio Dela Cruz is a pleasant Martiniquais-speaking 73 M w hx HFrEF 25% s/p ICD, CAD s/p PCI, DM2, HTN, CVA, CKD3b, obesity, seizures, who p/w SOB. 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 He states that he has been unable to lie flat for several months, and that his exertion has become progressively limited due to dyspnea. His daughter mentions a 2 lb wt gain since yesterday. She says she has noticed for the last several days that even while sitting at rest that she'll here him breathing slightly harder and faster with some wheezing/heaviness. The patient does state that he's been having some increased swelling in his legs, and points to his sock line which has left an indentation. Denies any chest pain or pressure or palpitations. Says his ICD was interrogated yesterday without abnormality except one episode where heart rate was faster than normal, and that patient was started on low dose metoprolol. In the ED, pt afebrile, HR 70s, RR 20-24, SBP 140s, and 88% on room air while ambulating. Pedal edema on exam. CXR w cardiomegaly, w vascular congestion and cephalization. Labs showing Hb 12.6, Cr 1.8, D-dimer 500, trop 0.09, BNP 880. Subsequent CT shows pulm artery dilation suggestive of PH. No consolidation or infiltrate. Admitted for hypoxia. Past medical, surgical, social, and family histories reviewed and updated as below, with addition to FHx of father w CAD/ME and brother with CHF. Past Med Surg Social Fam HX - Past Medical History Medical history: CHF, coronary artery disease, CVA, diabetes, hyperlipidemia, hypertension, renal disease, seizures Additional medical history: gout Psychiatric history: no psych history - Past Surgical History Surgical History: angioplasty/stent, pacemaker/AICD, vasectomy Additional surgical history: 01/24/18 angiogram with stents right leg - Social History Smoking Status: Former smoker Smokeless Tobacco Status: No Alcohol use: none Drug use: none - Family History Father Adopted: No Living Status: Hx Family Cardiac Disorders: Yes Hx Family Respiratory Disorders: No Hx Family Cancer: No Hx Family GI Disorders: No Hx Family Endocrine Disorder: No Hx Family Neuromuscular Disorders: No Hx Family Neurologic Disorders: No Hx Family HEENT Disorders: No Hx Family Autoimmune Disorders: No Daughter Adopted: No Family Member Ethnicity: Living Status: Still Living Hx Family Cardiac Disorders: Yes (brother) Hx Family Respiratory Disorders: No Hx Family Cancer: Yes (grandmother) Hx Family GI Disorders: No Hx Family Endocrine Disorder: Yes Hx Family Neuromuscular Disorders: No Hx Family Neurologic Disorders: No Hx Family HEENT Disorders: No Mother Adopted: No Family Member Ethnicity: Living Status: Hx Family Cardiac Disorders: No Hx Family Respiratory Disorders: No Hx Family Cancer: Yes (bone) Hx Family GI Disorders: No Hx Family Endocrine Disorder: Yes (DM) Hx Family Neuromuscular Disorders: No Hx Family Neurologic Disorders: No Hx Family HEENT Disorders: No Hx Family Autoimmune Disorders: No Internal Medicine - H&P: Meds Insulin ASPART [Novolog Flexpen] 22 unit SQ BID 07/29/17 [History] Aspirin [Lo-Dose Aspirin EC] 81 mg PO DAILY 09/02/18 [History] Atorvastatin Calcium [Lipitor] 40 mg PO DAILY 10/07/18 [History] Potassium Chloride [K-Tab ER] 10 meq PO DAILY #30 tablet.er 10/08/18 [Rx] Metoprolol [Lopressor] 25 mg PO BID 10/10/18 [History] Furosemide [Lasix] 40 mg PO DAILY #60 tablet 10/13/18 [Rx] amLODIPine [Norvasc] 5 mg PO DAILY #30 tablet 10/13/18 [Rx] Allergy/AdvReac Type Severity Reaction Status Date / Time No Known Allergies Allergy Verified 03/26/19 10:32 All Systems PM: A 10-system review of systems was performed and is negative for pertinent findings except as documented above in the HPI. - Constitutional Vitals: Temp Pulse Resp BP Pulse Ox 98.9 F 67 22 138/78 99 03/26/19 10:32 03/26/19 12:08 03/26/19 12:08 03/26/19 12:08 03/26/19 12:09 Exam: General: NAD, AAOx3, good eye contact, well appearing Head: Atraumatic, normocephalic. Face symmetric Eyes: EOMI, sclerae anicteric ENT: Mucous membranes moist. Normal oral mucosa. Trachea midline. Thoracic: No visible chest wall deformities. Bibasilar crackles Cardio: Normal S1 and S2, regular rate and rhythm. ++JVD almost to jaw and +HJR to ear Abdomen: Soft, nontender, nondistended Extremities: Warm, well perfused. DP pulses 2+ b/l. No clubbing, cyanosis. Pitting edema to b/l knees Skin: Intact. No rashes, bruises, or ulcers Neuro: Awake, fully oriented. Good memory, concentration, attention. Speech fluent. CN II-XII grossly intact. Strength 5/5 in b/l UE and LE Internal Med - H&P Results - Labs CBC & Chem 7: 03/26/19 10:51 03/26/19 10:51 Labs: Short CBC 03/26/19 Range/Units 10:51 WBC 8.5 (4.3-11.1) K/mcL Hgb 12.6 L (12.9-16.9) g/dL Hct 40.2 (37.5-50.1) % Plt Count 216 (140-400) K/mcL Neutrophils # 6.0 (1.6-8.9) K/mcL BMP 03/26/19 10:51 Sodium 139 Potassium 4.6 Chloride 104 Carbon Dioxide 28 BUN 34 H Creatinine 1.78 H Glucose 113 H Calcium 9.2 Cardiac Enzymes 03/26/19 Range/Units 10:51 Troponin I 0.09 H* (< 0.04) ng/mL - Impressions ITS Impressions Chest X-Ray 03/26/19 10:37 IMPRESSION: Cardiomegaly without edema. D/ / 03/26/2019 11:08:29 Augustus Chery MD / misty Interpreting Provider: Augustus Chery MD Chest CT 03/26/19 13:14 IMPRESSION: Trace right effusion. Cardiomegaly. Enlarged main pulmonary artery measuring 4 cm in diameter indicating pulmonary hypertension. D/ / Peter Leyva / Peter Leyva Interpreting Provider: Peter Leyva - Summary of Assessment and Plan Summary of Assessment and Plan: Antonio Dela Cruz is a 73 M w hx HFrEF 25% s/p ICD, CAD s/p PCI, DM2, HTN, CVA, CKD3b, obesity, seizures, who p/w SOB, hypoxia, cardiomegaly, CT showing pulmonary artery dilation, suggestive of acute hypoxic respiratory failure and pulmonary HTN. Acute on Chronic Systolic and Diastolic HF, LVEF 20-25%, s/p ICD, and PulmHTN: LE edema, JVD, and elevated BNP, w hypoxia and PA dilation - check TTE - tele - trend trops - Diuresis: lasix 80 iv x1 today, then tomorrow 40 iv bid - GDMT: change home lopressor 25 bid to coreg 6.25 bid, defer initiation of ACEi given aggressive diuresis today, will eventually begin lisinopril 2.5 and osiel 12.5 - home ASA/statin - Device: has ICD - Last RHC: unknown, will diurese first and see if improves, and if not will consider - If develops low pressures or does not tolerate diuresis, will consult cardiology Acute hypoxic respiratory failure: requiring 2L O2 to maintain sats >88%, likely 2/2 PH above - supplemental O2, wean as able - IS - treat cause as above - walk test prior to discharge Elevated trop: ECG unremarkable, suspect demand ischemia in setting of hypoxia - trend trops, tele, and TTE as above DM2: SSI HTN: uncontrolled, change metoprolol to coreg as above, diurese, monitor CAD, CVA, HLD: home ASA, statin CKD3b: baseline Cr ~1.5-1.8, monitor Obesity: BMI 34 Seizures: reported, not on AEDs PPx: lovenox FEN: cardiac ADA 1.5L, no MIVF Lines: PIV Consults: Code: Full Dispo: patient requires inpatient eval and management at this time. Anticipate 2-3 days. Will be homegoing
[2019-03-26] MEDS: Insulin LISPRO 300 UNITS/3 ML VIAL SQ SCH ×2 (16:57→21:17)
[2019-03-27] MEDS ORDERED: *HR* Enoxaparin 40 MG/0.4 ML SYRINGE SQ SCH ×2 (06:00)
[2019-03-27 07:55] LABS: Mean Corpuscular HGB Conc 30.8 g/dL (31.6-35.5); Mean Corpuscular Hemoglobin 26.8 pg (28.0-33.3); Mean Corpuscular Volume 87.1 fL (83.0-100.0); Mean Platelet Volume 10.7 fL (9.4-12.4); Platelet Count 212 K/mcL (140-400); Red Blood Count 4.48 M/mcL (4.19-5.50); Red Cell Distribution Width 13.3 % (11.5-14.5); White Blood Count 7.4 K/mcL (4.3-11.1)
[2019-03-27 08:14] LABS: Calcium 9.1 mg/dL (8.6-10.3); Magnesium 2.3 mg/dL (1.6-2.6); Potassium 3.6 mEq/L (3.5-5.1)
--- NOTE | 2019-03-27 08:16 | Internal Med Progress Note ---
Hospitalist Progress Note - Encounter Date of Encounter: 03/27/19 Time of Encounter: 08:14 - Subjective Interval History: Pt states no SOB while wearing O2 overnight. Denies orthopnea today. Says leg swelling is improving. He urinated many times overnight. - Exam Vitals: Temp Pulse Resp BP Pulse Ox 97.7 F 67 18 130/87 100 03/27/19 07:56 03/27/19 07:56 03/27/19 07:56 03/27/19 07:56 03/27/19 07:56 Exam: General: NAD, good eye contact, well appearing Thoracic: No visible chest wall deformities. Bibasilar crackles Cardio: Normal S1 and S2, regular rate and rhythm. +JVD Abdomen: Soft, nontender, nondistended Extremities: Warm, well perfused. DP pulses 2+ b/l. Pitting edema to b/l knees, none in thighs Skin: Intact. No rashes, bruises, or ulcers Neuro: Awake, fully oriented. Speech fluent. - Summary of Assessment and Plan Summary of Assessment and Plan: Antonio Dela Cruz is a 73 M w hx HFrEF 25% s/p ICD, CAD s/p PCI, DM2, HTN, CVA, CKD3b, obesity, seizures, who p/w SOB, hypoxia, cardiomegaly, CT showing pulmon goldie artery dilation, suggestive of acute hypoxic respiratory failure and pulmonary HTN. Acute on Chronic Systolic and Diastolic HF, LVEF 20-25%, s/p ICD, and PulmHTN: LE edema, JVD, and elevated BNP, w hypoxia and PA dilation. Today is improving. - check TTE - Diuresis: lasix 40 iv bid today - GDMT: coreg 6.25 bid, begin lisinopril 2.5 - home ASA/statin - Device: has ICD - Last RHC: unknown, will diurese first and see if improves, and if not will consider - If develops low pressures or does not tolerate diuresis, will consult cardiology Acute hypoxic respiratory failure: requiring 2L O2 to maintain sats >88%, likely 2/2 PH above, improving - supplemental O2, wean as able - IS - walk test prior to discharge Elevated trop: ECG unremarkable, suspect demand ischemia in setting of hypoxia, trops stable at 0.09 - trend trops, tele, and TTE as above DM2: SSI HTN: uncontrolled, change metoprolol to coreg as above, diurese, monitor CAD, CVA, HLD: home ASA, statin CKD3b: baseline Cr ~1.4-1.8, monitor Obesity: BMI 34 Seizures: reported, not on AEDs PPx: lovenox FEN: cardiac ADA 1.5L, no MIVF Lines: PIV Consults: Code: Full Dispo: patient requires inpatient eval and management at this time. Anticipate 2 days. Will be homegoing Internal Medicine: Result - Labs CBC & Chem 7: 03/27/19 07:16 03/27/19 07:16 Labs: Short CBC 03/26/19 03/27/19 Range/Units 10:51 07:16 WBC 8.5 7.4 (4.3-11.1) K/mcL Hgb 12.6 L 12.0 L (12.9-16.9) g/dL Hct 40.2 39.0 (37.5-50.1) % Plt Count 216 212 (140-400) K/mcL Neutrophils # 6.0 (1.6-8.9) K/mcL BMP 03/26/19 10:51 Sodium 139 Potassium 4.6 Chloride 104 Carbon Dioxide 28 BUN 34 H Creatinine 1.78 H Glucose 113 H Calcium 9.2 Cardiac Enzymes 03/26/19 03/26/19 Range/Units 10:51 17:22 Troponin I 0.09 H* 0.09 H* (< 0.04) ng/mL - ABG Interpretation ABG results: PT/INR, D-dimer 499 ng/mLFEU (0-500) 03/26/19 10:51 - Impressions Impressions Chest X-Ray 03/26/19 10:37 IMPRESSION: Cardiomegaly without edema. D/ / 03/26/2019 11:08:29 Augustus Chery MD / misty Interpreting Provider: Augustus Chery MD Chest CT 03/26/19 13:14 IMPRESSION: Trace right effusion. Cardiomegaly. Enlarged main pulmonary artery measuring 4 cm in diameter indicating pulmonary hypertension. D/ / Peter Leyva / Peter Leyva Interpreting Provider: Peter Leyva Consult Discharge Plan - Plan Referrals: Antoni Stern MD [Primary Care Provider] -
[2019-03-27] MEDS: Aspirin Enteric Coated 81 MG Tablet PO SCH (10:30)
[2019-03-27] MEDS: Furosemide 40 MG/4 ML VIAL IVP SCH ×2 (10:30→16:20)
[2019-03-27] MEDS: Insulin LISPRO 300 UNITS/3 ML VIAL SQ SCH ×4 (11:35→21:58)
[2019-03-27] MEDS ORDERED: Perflutren Lipid Microsphere 1.3 ML in 0.9 % Sodium Chloride 8.7 ML IVP ONE (18:42)
--- NOTE | 2019-03-27 19:48 | Electrocardiograph Report ---
[place] [id number] Test Date: 2019-03-26 Pat Name: Antonio Dela Cruz Department: 104 Room: [facility] Gender: M Egg Candler: Msc : 1945 Requested By: [id number] Order Number: [id number] Reading MD: Bhumi Delvalle Measurements Intervals [place] Rate: 73 P: 42 [place]: 181 QRS: -10 QRSD: 114 T: 168 QT: 414 QTc: 440 Interpretive Statements SINUS RHYTHM LEFT VENTRICULAR HYPERTROPHY AND ST-T CHANGE Electronically Signed On 03-27-2019 19:46:58 EDT by Bhumi Delvalle
[2019-03-28] MEDS ORDERED: *HR* Enoxaparin 40 MG/0.4 ML SYRINGE SQ SCH (06:00)
[2019-03-28 07:11] LABS: Hemoglobin 12.6 g/dL (12.9-16.9); Mean Corpuscular HGB Conc 30.7 g/dL (31.6-35.5); Mean Corpuscular Volume 87.8 fL (83.0-100.0); Mean Platelet Volume 10.6 fL (9.4-12.4); Platelet Count 211 K/mcL (140-400); Red Blood Count 4.67 M/mcL (4.19-5.50); Red Cell Distribution Width 13.4 % (11.5-14.5); White Blood Count 8.3 K/mcL (4.3-11.1)
[2019-03-28 07:31] LABS: Calcium 9.4 mg/dL (8.6-10.3); Magnesium 2.4 mg/dL (1.6-2.6); Potassium 3.9 mEq/L (3.5-5.1)
[2019-03-28] MEDS: Aspirin Enteric Coated 81 MG Tablet PO SCH (10:14)
[2019-03-28] MEDS: Insulin LISPRO 300 UNITS/3 ML VIAL SQ SCH ×4 (10:15→23:36)
[2019-03-28] MEDS: Furosemide 40 MG/4 ML VIAL IVP SCH (10:15)
--- NOTE | 2019-03-28 12:03 | Internal Med Progress Note ---
Hospitalist Progress Note - Encounter Date of Encounter: 03/28/19 Time of Encounter: 11:57 - Subjective Interval History: Pt today does complain of exertional dyspnea but says it is improving, better than admission. Leg swelling continues to improve and is urinating frequently from lasix. - Exam Vitals: Temp Pulse Resp BP Pulse Ox 98.0 F 69 16 128/80 93 03/28/19 11:36 03/28/19 11:36 03/28/19 11:36 03/28/19 11:36 03/28/19 11:36 Exam: General: NAD, good eye contact, well appearing Thoracic: No visible chest wall deformities. Lungs clear without crackles Cardio: Normal S1 and S2, regular rate and rhythm. Still has obvious +JVD Abdomen: Soft, nontender, nondistended Extremities: Warm, well perfused. DP pulses 2+ b/l. Pitting edema to b/l knees less than on admission, none in thighs Skin: Intact. No rashes, bruises, or ulcers Neuro: Awake, fully oriented. Speech fluent. - Summary of Assessment and Plan Summary of Assessment and Plan: Antonio Dela Cruz is a 73 M w hx HFrEF 25% s/p ICD, CAD s/p PCI, DM2, HTN, CVA, CKD3b, obesity, seizures, who p/w SOB, hypoxia, cardiomegaly, CT showing pulmonary artery dilation, suggestive of acute hypoxic respiratory failure and pulmonary HTN. Acute on Chronic Systolic and Diastolic and RV systolic HF, LVEF 20-25%, s/p ICD, and PulmHTN: LE edema, JVD, and elevated BNP, w hypoxia and PA dilation. Continues to diurese. TTE showing severe LV systolic 20-25% and severe diastolic dysfunction w RV dysfunction and severe PH. - Diuresis: convert to lasix 80 po bid today - GDMT: coreg 6.25 bid, will not initiate ACEi due to mild EDGAR from diuresis - home ASA/statin - Device: has ICD Acute hypoxic respiratory failure: resolved, weaned from O2 at rest - walk test today Elevated trop: ECG unremarkable and TTE w/o WMA, suspect demand ischemia in setting of hypoxia, trops stable at 0.09 DM2 w hyperglycemia: SSI HTN: uncontrolled, change metoprolol to coreg as above, diurese, monitor CAD, CVA, HLD: home ASA, statin CKD3b: baseline Cr ~1.4-1.8, monitor Obesity: BMI 34 Seizures: reported, not on AEDs PPx: lovenox 30 daily FEN: cardiac ADA 1.5L, no MIVF Lines: PIV Consults: Code: Full Dispo: patient requires inpatient eval and management at this time. Anticipate d/c tomorrow. Will be homegoing Internal Medicine: Result - Labs CBC & Chem 7: 03/28/19 06:52 03/28/19 06:52 Labs: Short CBC 03/28/19 Range/Units 06:52 WBC 8.3 (4.3-11.1) K/mcL Hgb 12.6 L (12.9-16.9) g/dL Hct 41.0 (37.5-50.1) % Plt Count 211 (140-400) K/mcL BMP 03/28/19 06:52 Sodium 143 Potassium 3.9 Chloride 105 Carbon Dioxide 28 BUN 45 H Creatinine 1.96 H Glucose 154 H Calcium 9.4 - ABG Interpretation ABG results: PT/INR, D-dimer 499 ng/mLFEU (0-500) 03/26/19 10:51 - Impressions Impressions Echocardiogram 03/27/19 12:18 Impressions: LVEF 20-25%. Severe left ventricular diastolic dysfunction. Severely dilated left ventricle. Mild right ventricular hypokinesis. Moderately dilated left atrium. Moderate mitral regurgitation. Moderate tricuspid regurgitation. Severe pulmonary hypertension.Estimated RVSP is 73 mmHg. A device lead was visualized in the right atrium and right ventricle. Left Ventricular Wall Motion: Rest Echo Findings The apex, apical inferior, mid inferior, basal inferior, apical anterior, mid anterior, basal anterior, apical septal, mid inferior septal, basal inferior septal, apical lateral, mid anterior lateral, basal anterior lateral, mid anterior septal, mid inferior lateral, basal anterior septal and basal inferior lateral bailey were hypokinetic. Findings: Study Quality * Technically adequate exam. ECG Findings * Sinus rhythm with BBB. Left Ventricle * LVEF 20-25%. * Definity echo contrast was used. * Atypical septal motion consistent with bundle branch block. * There is no LV thrombus. * Severe left ventricular diastolic dysfunction. * Severely dilated left ventricle. * Severe global left ventricular systolic dysfunction. Right Ventricle * Mild right ventricular hypokinesis. * Normal right ventricular structure and function. Left Atrium * Moderately dilated left atrium. Right Atrium * Moderately dilated right atrium. Aortic Valve * Trileaflet aortic valve. * Trace aortic regurgitation. * No aortic stenosis. Mitral Valve * Mild mitral annular calcification * Moderate mitral regurgitation. * No mitral stenosis. Tricuspid Valve * Moderate tricuspid regurgitation. * * Estimated RA pressure is 20 mmHg. * Severe pulmonary hypertension.Estimated RVSP is 73 mmHg. * Normal tricuspid valve structure. * No tricuspid stenosis. Pulmonic Valve * Trace pulmonic regurgitation. Aorta * Normally sized aortic root. Pericardium * There is a trivial pericardial effusion present. IVC * The IVC is dilated. Pulmonary Artery * Pulmonary artery not well visualized. Device lead * A device lead was visualized in the right atrium and right ventricle. Consult Discharge Plan - Plan Referrals: Antoni Stern MD [Primary Care Provider] -
[2019-03-28] MEDS: Furosemide 40 MG TABLET PO SCH (17:11)
[2019-03-29 03:12] LABS: Hematocrit 41.5 % (37.5-50.1); Hemoglobin 12.8 g/dL (12.9-16.9); Mean Corpuscular HGB Conc 30.8 g/dL (31.6-35.5); Mean Corpuscular Hemoglobin 26.9 pg (28.0-33.3); Mean Corpuscular Volume 87.4 fL (83.0-100.0); Mean Platelet Volume 10.9 fL (9.4-12.4); Platelet Count 212 K/mcL (140-400); Red Blood Count 4.75 M/mcL (4.19-5.50); Red Cell Distribution Width 13.2 % (11.5-14.5); White Blood Count 7.4 K/mcL (4.3-11.1)
[2019-03-29 03:31] LABS: Calcium 9.2 mg/dL (8.6-10.3); Magnesium 2.4 mg/dL (1.6-2.6); Potassium 3.6 mEq/L (3.5-5.1)
[2019-03-29] MEDS: *HR* Enoxaparin 30 MG/0.3 ML SYRINGE SQ SCH (05:17)
[2019-03-29] MEDS: Furosemide 40 MG TABLET PO SCH ×2 (08:55→16:58)
[2019-03-29] MEDS: Insulin LISPRO 300 UNITS/3 ML VIAL SQ SCH ×4 (08:55→22:05)
[2019-03-29] MEDS: Aspirin Enteric Coated 81 MG Tablet PO SCH (08:55)
--- NOTE | 2019-03-29 10:46 | Internal Med Progress Note ---
Hospitalist Progress Note - Encounter Date of Encounter: 03/29/19 Time of Encounter: 10:44 - Subjective Interval History: I have seen and evaluated the patient at bedside. patient reports improvement on his breathing and edema or the lower extremities. he denies chest pain, abdominal pain, nausea or vomiting. - Exam Vitals: Temp Pulse Resp BP Pulse Ox 98.0 F 80 17 147/90 99 03/29/19 07:27 03/29/19 07:27 03/29/19 07:27 03/29/19 07:27 03/29/19 07:27 Exam: Vitals: Reviewed General: Obese, Alert and oriented x4. In no distress Skin: Normal color, no rash, no lesions. HEENT: EOM, pupils equal, round and reactive. Cardiovascular: RRR, normal S1 & S2, no rubs, murmurs or gallops. Lungs: CTA b/l, no wheezes or crackles. Abdomen: Obese, soft, non-tender, no rigidity. Extremities: 1= + edema Neurological: Normal cognition and motor skills. Rest of the physical exam is non contributory - Assessment and Plan (1) CHF (congestive heart failure) Current Visit: No Status: Acute Assessment and Plan: patient reports shortness of breath has improved. Plan: To continue IV diruresis with furosemide 80mg/PO BID strict intake and output water restriction to 1.5 litters a day. daily weight 2 gram sodium diet ACEs has been held due to EDGAR Continue low dose beta-douglas (2) CAD (coronary artery disease) Current Visit: No Status: Chronic Assessment and Plan: Patient is on aspirin 81 mg by mouth daily. (3) CKD (chronic kidney disease) stage 3, GFR 30-59 ml/min Current Visit: No Status: Chronic Assessment and Plan: Continue to avoid nephrotoxic medication. Reassess kidney function tomorrow morning. (4) DM (diabetes mellitus), type 2 Current Visit: No Status: Chronic Assessment and Plan: patient is on lispro low dose sliding scale ac. levemir 5 unit HS added (5) HTN (hypertension) Current Visit: No Status: Chronic Assessment and Plan: Blood pressures well controlled on current management. Patient on a diuretic and a beta douglas. (6) ICD (implantable cardioverter-defibrillator) in place Current Visit: No Status: Chronic (7) KIAH on CPAP Current Visit: No Status: Chronic Assessment and Plan: Nocturnal BiPAP. DVT Prophylaxis: patient is on enoxaparin subq - Summary of Assessment and Plan Summary of Assessment and Plan: patient to remain in the hospital to continue IV diuresis at least for 24 more hours - Time Spent with Patient Total time spent is greater than 50% in coordination of care (as documented) at patient's floor/unit and/or counseling patient: Greater than 35 minutes (40) Plan of Care Discussed with: patient Internal Medicine: Result - Labs CBC & Chem 7: 03/29/19 01:23 03/29/19 01:23 Labs: Short CBC 03/29/19 Range/Units 01:23 WBC 7.4 (4.3-11.1) K/mcL Hgb 12.8 L (12.9-16.9) g/dL Hct 41.5 (37.5-50.1) % Plt Count 212 (140-400) K/mcL BMP 03/29/19 01:23 Sodium 143 Potassium 3.6 Chloride 102 Carbon Dioxide 28 BUN 52 H Creatinine 1.99 H Glucose 160 H Calcium 9.2 - ABG Interpretation ABG results: PT/INR, D-dimer 499 ng/mLFEU (0-500) 03/26/19 10:51 Consult Discharge Plan - Plan Referrals: Antoni Stern MD [Primary Care Provider] - (1) CHF (congestive heart failure) Qualifiers: Heart failure type: systolic Heart failure chronicity: acute Qualified Code(s): I50.21 - Acute systolic (congestive) heart failure (2) CAD (coronary artery disease) Qualifiers: Coronary Disease-Associated Artery/Lesion type: [place] artery [place] vs. transplanted heart: [place] heart Associated angina: without angina Qualified Code(s): I25.10 - Atherosclerotic heart disease of [place] coronary artery without angina pectoris (4) DM (diabetes mellitus), type 2 Qualifiers: Diabetes mellitus manager long term care insulin use: with manager long term care use Diabetes mellitus complication status: with unspecified complications (5) HTN (hypertension) Qualifiers: Hypertension type: essential hypertension Qualified Code(s): I10 - Essential (primary) hypertension
[2019-03-29] MEDS ORDERED: Sennosides/Docusate Sodium TABLET PO ONE (17:35)
[2019-03-29] MEDS ORDERED: Insulin DETEMIR 100 UNIT/ML X5UNITS SQ SCH (21:00)
[2019-03-30 03:16] LABS: Calcium 9.2 mg/dL (8.6-10.3); Magnesium 2.3 mg/dL (1.6-2.6); Phosphorous 3.9 mg/dL (2.7-4.5); Potassium 3.3 mEq/L (3.5-5.1)
[2019-03-30] MEDS: *HR* Enoxaparin 30 MG/0.3 ML SYRINGE SQ SCH (05:27)
[2019-03-30] MEDS: Insulin LISPRO 300 UNITS/3 ML VIAL SQ SCH ×2 (07:29→11:48)
[2019-03-30] MEDS: Furosemide 40 MG TABLET PO SCH (07:29)
[2019-03-30] MEDS: Aspirin Enteric Coated 81 MG Tablet PO SCH (07:29)
--- NOTE | 2019-03-30 10:13 | Discharge Summary ---
Date of Encounter: 03/30/19 Time of Encounter: 10:11 - Discharge Diagnosis (1) CHF (congestive heart failure) Priority: Primary Status: Acute Qualifiers: Heart failure type: systolic Heart failure chronicity: acute Qualified Code(s): I50.21 - Acute systolic (congestive) heart failure (2) CAD (coronary artery disease) Priority: Secondary Status: Chronic Qualifiers: Coronary Disease-Associated Artery/Lesion type: [place] artery [place] vs. transplanted heart: [place] heart Associated angina: without angina Qualified Code(s): I25.10 - Atherosclerotic heart disease of [place] coronary artery without angina pectoris (3) CKD (chronic kidney disease) stage 3, GFR 30-59 ml/min Priority: Secondary Status: Chronic (4) DM (diabetes mellitus), type 2 Priority: Secondary Status: Chronic Qualifiers: Diabetes mellitus longterm insulin use: unspecified longterm insulin use status Diabetes mellitus complication status: with other specified complication Qualified Code(s): E11.69 - Type 2 diabetes mellitus with other specified complication (5) HTN (hypertension) Priority: Secondary Status: Chronic Qualifiers: Hypertension type: essential hypertension Qualified Code(s): I10 - Essential (primary) hypertension (6) ICD (implantable cardioverter-defibrillator) in place Priority: Secondary Status: Chronic (7) KIAH on CPAP Priority: Secondary Status: Chronic Hospital course: Mr. Dela Cruz is a 73 year old male 73 M w hx HFrEF 25% s/p ICD, CAD s/p PCI, DM2, HTN, CVA, CK3b, obesity, seizures, who p/w SOB. He states that he has been unable to lie flat for several months, and that his exertion has become progressively limited due to dyspnea. Patient was admitted to the hospital due to CHF exacerbation. Patient manage with IV diuretics, appropriately diuresed with significant improvement of his symptoms. Patient educated about being compliant with his medication and his diet. Hemodynamically stable to be discharged. 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 - Time Spent with Patient Total time spent providing and/or coordinating discharge services: Time spent: Greater than 30 minutes (35) - Discharge Medications Prescriptions: Continued Insulin ASPART [Novolog Flexpen] 22 unit SQ BID Aspirin [Lo-Dose Aspirin EC] 81 mg PO DAILY Potassium Chloride [K-Tab ER] 20 meq PO DAILY Losartan Potassium [Cozaar] 50 mg PO DAILY Glimepiride [Amaryl] 2 mg PO DAILY Furosemide [Lasix] 40 mg PO BID Metoprolol Succinate [Toprol Xl] 75 mg PO DAILY Home Medications: Insulin ASPART [Novolog Flexpen] 22 unit SQ BID 07/29/17 [History] Aspirin [Lo-Dose Aspirin EC] 81 mg PO DAILY 09/02/18 [History] Furosemide [Lasix] 40 mg PO BID 03/27/19 [History] Glimepiride [Amaryl] 2 mg PO DAILY 03/27/19 [History] Losartan Potassium [Cozaar] 50 mg PO DAILY 03/27/19 [History] Metoprolol Succinate [Toprol Xl] 75 mg PO DAILY 03/27/19 [History] Potassium Chloride [K-Tab ER] 20 meq PO DAILY 03/27/19 [History] Allergies/Adverse Reactions: Allergy/AdvReac Type Severity Reaction Status Date / Time No Known Allergies Allergy Verified 03/26/19 10:32 Date of admission: 03/26/19 17:42 Primary care physician: Antoni Stern MD Consults: 03/26/19 16:46 Consult to Pastoral Services [CONS] Routine Comment: [place] speaking will need to use senior biostatistician Consult to Print Shop Stenographer [CONS] Routine Reason for SW Consult: Potential need for home o2 at [place]. 03/27/19 08:45 Consult to Nurse Navigator [CONS] Routine Comment: chf, only speaks indonesian - Constitutional Vitals: Temp Pulse Resp BP Pulse Ox 97.9 F 77 16 157/88 95 03/30/19 06:33 03/30/19 06:33 03/30/19 06:33 03/30/19 06:33 03/30/19 07:36 Exam: Vitals: Reviewed General: Obese, Alert and oriented x4. In no distress Cardiovascular: RRR, normal S1 & S2, no rubs, murmurs or gallops. Lungs: CTA b/l, no wheezes or crackles. Abdomen: Obese, soft, non-tender, no rigidity. NABS in all 4 quadrants Extremities: 1+ edema Neurological: No focal neurological abnormalities Rest of the physical exam is non contributory - Patient Status Disposition: Home, Self-Care Condition: Good Functional capacity at discharge: independent ambulation Overall status at discharge: patient is back to baseline - Discharge Instructions Follow Up With: Antoni Stern MD [Primary Care Provider] - - Diet and Activity Activity: resume usual activities as tolerated Diet: low salt diet
[2019-03-30 11:48] VITALS: BP 138/86
== END 2019-03-30 13:40 | disposition home or self-care (01) | DRG 291 ==
LOC: EMEROOARM 10:23 → 2ANU 10:23 → SUATTDRO 17:42
PROVIDERS: ADMIT Internal Medicine; ATTEND Internal Medicine